=== PATIENT | female | born 1965 | race Caucasian/White ===

== ENCOUNTER 2016-07-16 08:07 | Emergency (ER) | payer OTHER ==
[2016-07-16 08:14] VITALS: RESP 18
[2016-07-16] MEDS ORDERED: predniSONE 20 MG TAB PO STA (08:24)
[2016-07-16] MEDS ORDERED: ALBUTEROL NEBULIZED 2.5 MG/3 ML INHALATION STA (08:24)
--- NOTE | 2016-07-16 08:29 | ED ---
URI HPI - General Chief Complaint: Upper Respiratory Infection Stated Complaint: RIB CAGE, BACK PAIN WITH COUGH, WHEEZING Time Seen by Provider: 07/16/16 08:19 Source: patient, RN notes reviewed Mode of arrival: ambulatory Limitations: no limitations - History of Present Illness Initial Comments: This patient is a 51-year-old woman with previous history of "wheezing," who presents with 2 days of cough and the onset today wheezing. The patient states that she developed some cold-like symptoms 2 days ago including congestion and a nonproductive cough. Since then she has noted onset of wheezing, little bit of yellow sputum, and a little bit of burning pain when she coughs. The patient states that she usually would take albuterol for this but that part of her nebulizer broke and it is not working. Patient denies fever or chills, focal chest pain, leg pain or swelling. MD Complaint: cough Onset/Timin -: days(s) Severity: moderate Quality: burning Consistency: other (With cough) Improves With: nothing Worsens With: nothing Associated Symptoms: cough, other (Wheezing) Treatments Prior to Arrival: none - Related Data Previous Rx's Medication Instructions Recorded Albuterol Inhaler [Ventolin Hfa 1 - 2 puff INHALATION Q6HR PRN #1 07/16/16 Inhaler] inhaler predniSONE 60 mg PO DAILY #30 tab 07/16/16 Allergies Allergy/AdvReac Type Severity Reaction Status Date / Time Iodinated Contrast Media - Allergy Itching Verified 07/16/16 08:28 Oral and [Iodinated Contrast Media - IV Dye] Review of Systems ROS Statement: Those systems with pertinent positive or pertinent negative responses have been documented in the HPI. ROS Other: All systems not noted in ROS Statement are negative. Constitutional: Denies: fever, chills ENT: Reports: congestion Respiratory: Reports: as per HPI, cough, wheezes. Denies: dyspnea Cardiovascular: Reports: as per HPI, chest pain. Denies: palpitations, orthopnea, edema, syncope Gastrointestinal: Denies: abdominal pain, nausea, vomiting Genitourinary: Denies: dysuria, hematuria Musculoskeletal: Denies: back pain Skin: Denies: rash Past Medical History Past Medical History: Chest Pain / Angina, Hypertension History of Any Multi-Drug Resistant Organisms: MRSA Date of last positivie culture/infection: 2006 MDRO Source:: right leg Past Surgical History: Cholecystectomy Additional Past Surgical History / Comment(s): x two Past Anesthesia/Blood Transfusion Reactions: No Reported Reaction Past Psychological History: ADD/ADHD, Anxiety, Bipolar, Depression Smoking Status: Current some day smoker Past Alcohol Use History: Abuse, Daily Past Drug Use History: Methamphetamine, Prescription Drug Abuse - Past Family History Mother Family Medical History: Diabetes Mellitus Brother(s) Family Medical History: Diabetes Mellitus, Myocardial Infarction ([place]) General Exam Limitations: no limitations General appearance: alert, in no apparent distress, obese Head exam: Present: atraumatic, normocephalic Eye exam: Present: normal appearance. Absent: scleral icterus, conjunctival injection ENT exam: Present: mucous membranes moist, other (Cobblestoning of the pharynx) Neck exam: Present: normal inspection Respiratory exam: Present: wheezes. Absent: respiratory distress, rales, rhonchi, stridor, chest wall tenderness, accessory muscle use, decreased breath sounds, prolonged expiratory Cardiovascular Exam: Present: regular rate, normal rhythm, normal heart sounds. Absent: systolic murmur, diastolic murmur, rubs, gallop GI/Abdominal exam: Present: soft. Absent: distended, tenderness, guarding, rebound Extremities exam: Present: normal inspection, normal capillary refill. Absent: pedal edema, calf tenderness Back exam: Present: normal inspection. Absent: CVA tenderness (R), CVA tenderness (L) Skin exam: Present: warm, dry, intact, normal color. Absent: rash Course Vital Signs 07/16/16 07/16/16 07/16/16 08:10 08:51 09:00 Temperature 99.7 F H Pulse Rate 71 74 76 Respiratory 18 Rate Blood Pressure 135/79 O2 Sat by Pulse 95 Oximetry Disposition Clinical Impression: Asthmatic bronchitis Disposition: HOME SELF-CARE Condition: Fair Instructions: Acute Bronchitis (ED) Prescriptions: Albuterol Inhaler [Ventolin Hfa Inhaler] 1 - 2 puff INHALATION Q6HR PRN #1 inhaler PRN Reason: Wheezing predniSONE 60 mg PO DAILY #30 tab Referrals: Miranda Kay MD [Primary Care Provider] - 1-2 days
--- NOTE | 2016-07-16 08:40 | XR ---
EXAMINATION TYPE: XR chest 2V DATE OF EXAM: 07/16/2016 8:32 AM COMPARISON: 06/22/2015 HISTORY: 51-year-old female with cough and chest pain under the ribs. TECHNIQUE: PA and lateral views FINDINGS: The cardiomediastinal silhouette, aorta, and pulmonary vasculature are within normal limits. Mild per ibronchial cuffing is noted. Strandy atelectasis at the right base. No consolidation or pleural effus ion. IMPRESSION: Peribronchial cuffing could reflect bronchitis or chronic asthma.
[2016-07-16 09:16] VITALS: BP 134/76; PULSE 79; TEMP 97.8
== END 2016-07-16 09:16 | disposition home or self-care (01) ==
LOC: SUPCPDRO 08:07 → EC 08:07
DX: J45.909 Unspecified asthma, uncomplicated (principal); F17.200 Nicotine dependence, unspecified, uncomplicated; Z91.041 Radiographic dye allergy status; Z86.14 Personal history of Methicillin resistant Staphylococcus aureus infection
CPT/HCPCS: 94640; 71020; 99283; J7512

== ENCOUNTER 2016-09-28 15:05 | Observation (INO) | payer OTHER ==
[2016-09-28] MEDS ORDERED: ASPIRIN 81 MG CHEW PO STA (18:01)
[2016-09-28] MEDS ORDERED: NITROGLYCERIN OINT 1 INCH/GM PACKET TOPICAL STA (18:01)
[2016-09-28 18:20] LABS: Basophils # (A) 0.1 k/uL (0-0.2); Basophils % (A) 1 %; CH 28.9; CHCM 33.5; Eosinophils # (A) 0.1 k/uL (0-0.7); Eosinophils % (A) 2 %; HCT 42.1 % (34.0-46.0); HDW 2.63; HGB 14.2 gm/dL (11.4-16.0); Luc # (Auto) 0.12; Luc % (Auto) 2; Lymphocytes # (A) 1.4 k/uL (1.0-4.8); Lymphocytes % (A) 22 %; MCH 29.1 pg (25.0-35.0); MCHC 33.7 g/dL (31.0-37.0); MCV 86.5 fL (80.0-100.0); Monocytes # (A) 0.3 k/uL (0-1.0); Monocytes % (A) 5 %; Neutrophils # (A) 4.5 k/uL (1.3-7.7); Neutrophils % (A) 68 %; RBC 4.86 m/uL (3.80-5.40); WBC 6.5 k/uL (3.8-10.6)
[2016-09-28 18:29] LABS: Partial Thromboplastin Time 23.3 sec (22.0-30.0)
[2016-09-28 18:38] LABS: ALT 28 U/L (9-52); AST 17 U/L (14-36); Alkaline Phosphatase 98 U/L (38-126); Anion Gap 10 mmol/L; Blood Urea Nitrogen 14 mg/dL (7-17); Calcium 9.1 mg/dL (8.4-10.2); Carbon Dioxide 29 mmol/L (22-30); Chloride 104 mmol/L (98-107); Glucose 99 mg/dL (74-99); Magnesium 2.2 mg/dL (1.6-2.3); Non-African American GFR(MDRD) >60 (>60 ml/min/1.73 sqM); Potassium 3.8 mmol/L (3.5-5.1); Sodium 143 mmol/L (137-145); Total Bilirubin 0.4 mg/dL (0.2-1.3)
--- NOTE | 2016-09-28 18:40 | XR ---
EXAMINATION TYPE: XR chest 2V DATE OF EXAM: 09/28/2016 6:37 PM COMPARISON: 07/16/2016 HISTORY: Chest pain TECHNIQUE: Frontal and lateral views of the chest are obtained. FINDINGS: Heart and mediastinum are normal. Lungs are clear. Diaphragm is normal. Bony thorax and so ft tissues appear normal. There are chest leads. IMPRESSION: Normal chest. No change.
[2016-09-28 18:45] LABS: Creatine Kinase 58 U/L (30-135)
[2016-09-28 18:58] LABS: Creatine Kinase MB 0.3 ng/mL (0.0-2.4); Troponin I <0.012 ng/mL (0.000-0.034)
--- NOTE | 2016-09-28 19:56 | ED ---
Chest Pain HPI - General Chief Complaint: Chest Pain Stated Complaint: Chest Pain Time Seen by Provider: 09/28/16 17:51 Source: patient Mode of arrival: wheelchair Limitations: no limitations - History of Present Illness Initial Comments: This 51-year-old female presents complaining of left chest heaviness. She states that it is also feeling like a jolting pain which is nonpleuritic. She states that it occurred at approximately 10:30 AM. There was some shortness of breath but no diaphoresis. She states that it does radiate down her left arm. It only lasts a few seconds to a minute. She apparently did have a similar incident 3-4 years ago and had a stress test and heart catheterization. She was told that she may need cardiac surgery but she states that she had some people from her shinto come and prefer for her. She apparently was on the operating room table when she relates that they did not find any further blockage. She denies any leg pain or swelling or history DVT or PE. No other complaints or modifying factors. - Related Data Previous Rx's Medication Instructions Recorded Albuterol Inhaler [Ventolin Hfa 1 - 2 puff INHALATION Q6HR PRN #1 07/16/16 Inhaler] inhaler Allergies Allergy/AdvReac Type Severity Reaction Status Date / Time Iodinated Contrast Media - Allergy Itching Verified 09/28/16 18:22 Oral and [Iodinated Contrast Media - IV Dye] Review of Systems ROS Statement: Those systems with pertinent positive or pertinent negative responses have been documented in the HPI. ROS Other: All systems not noted in ROS Statement are negative. Past Medical History Past Medical History: Chest Pain / Angina, Hypertension History of Any Multi-Drug Resistant Organisms: MRSA Date of last positivie culture/infection: 2006 MDRO Source:: right leg Past Surgical History: Cholecystectomy Additional Past Surgical History / Comment(s): x two Past Anesthesia/Blood Transfusion Reactions: No Reported Reaction Past Psychological History: ADD/ADHD, Anxiety, Bipolar, Depression Smoking Status: Current some day smoker Past Alcohol Use History: Abuse, Daily Past Drug Use History: Methamphetamine, Prescription Drug Abuse - Past Family History Mother Family Medical History: Diabetes Mellitus Brother(s) Family Medical History: Diabetes Mellitus, Myocardial Infarction ([place]) General Exam - General Exam Comments Initial Comments: GENERAL: The patient is well nourished and well hydrated. VITAL SIGNS: Heart rate, blood pressure, respiratory rate reviewed as recorded in nurse's notes. EYES: Pupils are round and reactive. Extraocular movements are intact. No conjunctival / lid redness or swelling. ENT: No external evidence of injury, swelling, or ecchymosis. Airway is patent. Throat is clear. NECK: Nontender. No swelling or evidence of injury. No subcutaneous emphysema. Trachea is midline. No thyroid mass. HEART: Regular rate and rhythm. Good peripheral pulses. LUNGS/CHEST: Breath sounds clear and equal bilaterally. No rales, rhonchi, or wheezes. No ecchymosis, subcutaneous emphysema, or tenderness. ABDOMEN: Abdomen soft without tenderness. No palpable masses or organomegaly. No peritoneal signs. No abdominal wall swelling or ecchymosis. EXTREMITIES: No extremity tenderness. Normal muscle tone and function. No thoracolumbar tenderness. NEUROLOGIC: Sensation is grossly intact. Cranial nerve exam reveals face is symmetrical, tongue is midline, speech is clear. SKIN: No abrasions or ecchymosis is noted. No induration or masses noted. PSYCHIATRIC: Alert and oriented. Appropriate behavior and judgment. Limitations: no limitations Course Vital Signs 09/28/16 09/28/16 09/28/16 15:10 18:28 19:38 Temperature 98.4 F Pulse Rate 71 62 57 L Respiratory 18 18 18 Rate Blood Pressure 147/92 171/105 147/89 O2 Sat by Pulse 97 99 97 Oximetry Chest Pain MDM - MDM The patient was seen and examined. All diagnostics were reviewed. The patient is placed on a telemetry monitor no ectopy is identified. The patient had an EKG which shows a normal sinus rhythm at a rate of 68. No acute ST-T wave changes are identified. The DE interval is 142, QS duration is 90, and QTC intervals 461. The patient had a chest x-ray which did not show any acute process. The cardiac profile labs are all essentially within normal limits. She received aspirin and Nitropaste and is in no distress on recheck. Is felt as though she would require admission to the hospital for further treatment. She is agreeable. Case is discussed with internal medicine and patient admitted for observation. Disposition Clinical Impression: Chest pain, Unstable angina pectoris, Hypertension Disposition: ADMITTED IP TO THIS [facility] Condition: Fair Time of Disposition: 19:56 Decision Date: 09/28/16 Decision Time: 19:56
[2016-09-28] MEDS ORDERED: HEPARIN SODIUM,PORCINE 5,000 UNIT/ML 1 ML VIAL IV PRN (19:57)
[2016-09-28] MEDS ORDERED: HEPARIN SODIUM,PORCINE 5,000 UNIT/ML 1 ML VIAL IV ONE (19:57)
[2016-09-28] MEDS ORDERED: NITROGLYCERIN SL TABS 0.4 MG TAB SUBLINGUAL PRN (19:57)
[2016-09-28] MEDS ORDERED: ALBUTEROL NEBULIZED 2.5 MG/3 ML INHALATION PRN (19:59)
[2016-09-28] MEDS ORDERED: HEPARIN SODIUM,PORCINE/D5W PMX 25,000 UNIT in DEXTROSE/WATER 1 500ML.BAG IV SCH (20:00)
[2016-09-28] MEDS: NITROGLYCERIN OINT 1 INCH/GM PACKET TOPICAL SCH (23:42)
[2016-09-29 00:48] LABS: Creatine Kinase 42 U/L (30-135)
[2016-09-29 01:02] LABS: Creatine Kinase MB <0.2 ng/mL (0.0-2.4); Troponin I <0.012 ng/mL (0.000-0.034)
[2016-09-29] MEDS: NITROGLYCERIN OINT 1 INCH/GM PACKET TOPICAL SCH ×2 (04:15→11:37)
[2016-09-29 07:46] LABS: Creatine Kinase 45 U/L (30-135)
[2016-09-29 07:52] LABS: Cholesterol 156 mg/dL (<200); HDL Cholesterol 54 mg/dL (40-60); Triglycerides 90 mg/dL (<150)
[2016-09-29 07:58] LABS: Creatine Kinase MB 0.2 ng/mL (0.0-2.4); Troponin I <0.012 ng/mL (0.000-0.034)
[2016-09-29 08:30] VITALS: RESP 18
[2016-09-29] MEDS ORDERED: ASPIRIN 325 MG TAB PO SCH (09:00)
[2016-09-29 12:03] VITALS: BP 138/80; PULSE 62; TEMP 98.6
--- NOTE | 2016-09-29 12:49 | CONS ---
DATE OF CONSULTATION: 51-year-old admitted by Dr. Dimitri Rowell. Consultation requested by Dr. Dimitri Rowell. REASON FOR CONSULTATION: Cardiac evaluation and treatment. Samia Garcia is a 51-year-old female admitted to the hospital with left-sided chest heaviness with radiation to the left arm only, lasted less than a minute, a few seconds only. The patient denies any diaphoresis or major shortness of breath. Patient is reasonably active. Lives alone. Patient had one son who . The patient used to be a smoker, and history of alcohol abuse and drug use, all stopped in 2009 and patient is not smoking at present time. No history of deep venous thrombosis. No history of pulmonary embolism. Blood work has been negative. Troponin x3 are negative. Cholesterol is decent 156, triglycerides are 70, HDL of 54, LDL of 84. Current medications include Ventolin inhaler. ALLERGIC TO IODINATED CONTRAST AGENTS. REVIEW OF SYSTEMS: Essentially unremarkable. Not on any medications at the present time. History of heart catheterization in the past, unremarkable. History of MRSA infection in the past 2006 I believe. The patient had a cholecystectomy in the past. Physical examination revealed a well-developed, well-nourished 51-year-old female not in acute distress, oriented x3 with a BMI of 37.4, pulse rate of 64, respirations 18, blood pressure 132/75. Head normocephalic. HEENT unremarkable. Neck is supple. No thyroid enlargement. No bruit noted. Good bilaterally. Chest is symmetrical. CARDIAC EXAMINATION: Regular rate and rhythm. S1 and S2. Lungs are clinically clear to auscultation and percussion. ABDOMEN: Soft, no organomegaly. Active bowel sounds. ASSESSMENT: 1. Atypical chest pains, low probability of pulmonary embolism strong family history of coronary artery disease. 2. Past history of smoking and drug abuse and alcohol abuse. RECOMMENDATIONS: Proceed with a stress echocardiogram. If the stress echocardiogram is normal, patient may go home on nitroglycerin and follow with primary care physician as necessary and follow with cardiology.
--- NOTE | 2016-09-29 13:03 | ECHOF ---
Referral Reason: MEASUREMENTS -------- HEIGHT: 167.6 cm WEIGHT: 105.2 kg BP: 107/69 IVSd: 1.2 cm (0.6 - 1.1) LVIDd: 4.5 cm (3.9 - 5.3) LVPWd: 1.1 cm (0.6 - 1.1) IVSs: 1.8 cm LVIDs: 3.2 cm LVPWs: 1.8 cm Ao Diam: 3.0 cm (2.0 - 3.7) AV Cusp: 2.4 cm (1.5 - 2.6) LA Diam: 3.4 cm (2.7 - 3.8) MV EXCURSION: 12.495 mm (> 18.000) MV EF SLOPE: 102 mm/s (70 - 150) EPSS: 0.8 cm MV E Serafin: 0.80 m/s MV DecT: 267 ms MV A Serafin: 0.55 m/s MV E/A Ratio: 1.44 RAP: 5.00 mmHg RVSP: 20.79 mmHg FINDINGS -------- Sinus rhythm. This was a technically good study. The left ventricular size is normal. There is borderline concentric left ventricular hypertrophy. Overall left ventricular systolic function is normal with, an EF between 55 - 60 %. The right ventricle is normal in size and function. The left atrium is normal in size. The right atrium is normal in size. The aortic valve is trileaflet, and appears structurally normal. No aortic stenosis or regurgitation. The mitral valve is normal. Mild mitral regurgitation is present. Mild tricuspid regurgitation present. The right ventricular systolic pressure, as measured by Doppler, is 20.79mmHg. There is no pulmonic regurgitation present. The aortic root size is normal. There is a trivial pericardial effusion present. CONCLUSIONS -------- 1. Sinus rhythm. 2. There is no pulmonic regurgitation present. 3. The aortic root size is normal. 4. There is a trivial pericardial effusion present. 5. This was a technically good study. 6. There is borderline concentric left ventricular hypertrophy. 7. Overall left ventricular systolic function is normal with, an EF between 55 - 60 %. 8. The left atrium is normal in size. 9. The aortic valve is trileaflet, and appears structurally normal. No aortic stenosis or regurgitation. 10. Mild mitral regurgitation is present. 11. Mild tricuspid regurgitation present. 12. The right ventricular systolic pressure, as measured by Doppler, is 20.79mmHg. SEC REPORTING CONSULTANT: Jacquelin Rae RDCS
--- NOTE | 2016-09-29 13:49 | ECHOS ---
DATE OF SERVICE: 09/29/2016 AGE: 51Y SEX: F HT: 66" WT: 232 lbs. Protocol Brian: X Others: Stress Echo Stage: 3 Dur. of Exercise: 8:00 *Heart Rate Blood Pressure *Rest: 67 Rest: 145/89 * *Max. Achieved: 148 Maximum BP: 196/86 85% PMHR: 142 100% PMHR: 167 *METS: 9.6 INDICATIONS: Chest pain. MEDICATIONS: - Baseline rhythm is sinus mechanism, rate of 67, normal axis and intervals, poor R-wave progression, minor nonspecific ST-T wave changes. Baseline blood pressure 145/89 mmHg. Patient exercised on Brian protocol for 8 minutes reaching peak rate of 148 beats per minute, which is equal to 88% maximum predicted heart rate; peak blood pressure 196/86 mmHg. Test was terminated due to fatigue. There was no chest pain. Electrocardiographic monitoring revealed no evidence of diagnostic ischemic ST deviation. FINDINGS: Baseline echocardiogram revealed normal wall thickening and motion. At peak exercise there was normal wall motion augmentation with no hypokinesis or dyskinesis. CONCLUSION: 1. Average exercise tolerance with normal electrocardiograph response to exercise. 2. Normal stress echocardiogram with no evidence of stress-induced ischemia.
--- NOTE | 2016-09-29 16:23 | HP ---
DATE OF ADMISSION: 09/28/2016 PRESENTING COMPLAINT: Chest pain. HISTORY OF PRESENTING COMPLAINT: This is a 51 -year-old patient of Dr. Otero with history of bipolar disorder, which is stable, not taking any medications and some hypertension in the past not taking any medications. Patient got up yesterday morning and felt a soft pressure in the left anterior clavicle area. [place] like a pressure coming on and off. No shortness of breath. No dizziness. No perspiration. Not related to activity but was concerned about cardiac and being on the left side and hence decided to come in. No prior cardiac history. REVIEW OF SYSTEMS: CONSTITUTIONAL: None. HEENT: None. RESPIRATORY: None. CARDIOVASCULAR: As above. GASTROINTESTINAL: None. GENITOURINARY: None. MUSCULOSKELETAL: As above. Dermatological: None. HEMATOLOGICAL: None. LYMPHATIC: None. PSYCHIATRY: None. NEUROLOGICAL: None. Past medical history of bipolar disorder, hypertension. PAST SURGICAL HISTORY: Cholecystectomy, cardiac cath, x2. Psych history of ADHD, anxiety, bipolar depression. SOCIAL HISTORY: The patient did occasional methamphetamines and cocaine years ago. Patient has got custody of her grandnephew 5 years old. FAMILY HISTORY: Diabetes. HOME MEDICATIONS: Albuterol p.r.n. ALLERGIES TO IV CONTRAST DYE. PHYSICAL EXAMINATION: Vital signs are temperature 98.4, pulse 91, respiration 18, blood pressure 147/92, repeat was 117/105. Pulse ox 97% on room air. GENERAL APPEARANCE: Overweight. BMI 37.5, sitting on the bed, comfortable. EYES: Pupils equal. Conjunctivae normal. HEENT: External appearance of nose and ears normal. Oral cavity normal. NECK: JVD not raised. Mass not palpable. RESPIRATORY: Effort normal. Lungs are clear. CARDIOVASCULAR: First and second sounds normal. No edema. ABDOMEN: Soft, nontender. Liver and spleen not palpable. LYMPHATIC: No lymph nodes palpable in neck or axillae. PSYCHIATRY: Alert and oriented x3. Mood and affect normal. NEUROLOGICAL: Pupils equal. Cranial nerves grossly intact. Power and sensation grossly intact. INVESTIGATIONS: White count 6.5, hemoglobin 14.2, potassium 3.3. BUN and creatinine normal. Troponin x3 negative. LDL 84. ASSESSMENT: 1. Left-sided chest pain sounds to be more musculoskeletal lasting for a minute, coming off and on. Patient admitted to rule out a cardiac cause. 2. Obesity, body mass index of 37.4. 3. Essential hypertension untreated. PLAN: Cardiology was consulted who ordered a stress test. Patient was put on aspirin, nitro paste. The patient should see a dietitian to lose weight. Copy to Dr. Otero.
--- NOTE | 2016-09-30 07:05 | DS ---
DATE OF ADMISSION: 09/28/2016 DATE OF DISCHARGE: 09/29/2016 FINAL DIAGNOSES: 1. Left anterior chest wall pain, probably musculoskeletal. 2. Obesity, body mass index of 37.4. 3. Essential hypertension. HOSPITAL COURSE: This patient presented with left-sided chest pain, felt to be musculoskeletal. Stress echocardiogram was negative. Patient has blood pressures somewhat uncontrolled. A 2-D echo showed borderline concentric left ventricular hypertrophy, ejection fraction was 55% to 60%. Care was discussed with the patient. Troponins were negative. LDL was 84. On exam, lungs are clear. CARDIOVASCULAR: First and second sounds normal. Some reproducible pain on the left anterior chest wall. CONSULTATION: Dr. Jj Germain from cardiology. DISCHARGE MEDICATIONS: 1. Ventolin 1 to 2 puffs q.6 p.r.n. 2. Zestoretic 04/15.5 one tablet p.o. b.i.d. Follow up with Dr. Otero in one week.
== END 2016-09-29 15:25 | disposition home or self-care (01) ==
LOC: EC 15:05 → 3OBS 19:57
PROVIDERS: ADMIT Hospitalist; ATTEND Hospitalist
DX: R07.89 Other chest pain (principal); I11.9 Hypertensive heart disease without heart failure; E66.9 Obesity, unspecified; Z68.37 Body mass index [BMI] 37.0-37.9, adult; F17.200 Nicotine dependence, unspecified, uncomplicated; I51.7 Cardiomegaly; R06.02 Shortness of breath; Z79.899 Other long term (current) drug therapy; Z91.041 Radiographic dye allergy status
CPT/HCPCS: 99285 ×2; 96365 ×2; 96376 ×2; 36415; 94640; 93005; 93017; 93306; 93350; 83880; 80061; 80053; 82550 ×2; 82553 ×2; 83735; 84484 ×2; 85025; 85610; 85730 ×2; 71020; G0378 ×2; J1644 ×3; 96366

== ENCOUNTER → 2017-06-01 | Outpatient (CLI) | payer OTHER ==
--- NOTE | 2017-06-03 13:37 | MM ---
Reason for exam: screening (asymptomatic). Last mammogram was performed 8 years and 2 months ago. History: Patient has history of endometrial cancer at age 37. Physical Findings: A clinical breast exam by your physician is recommended on an annual basis and results should be correlated with mammographic findings. MG 3D Screening Mammo W/Cad Bilateral CC and MLO view(s) were taken. Prior study comparison: April 03, 2009, bilateral digital screening mammogram. July 23, 2006, bilateral screening mammogram w/CAD. There are scattered fibroglandular densities. There is no discrete abnormality. ASSESSMENT: Negative, BI-RAD 1 RECOMMENDATION: Routine screening mammogram of both breasts in 1 year.
== END | disposition home or self-care (01) ==
LOC: RADMAMWWP 07:13
PROVIDERS: ATTEND Family Medicine
DX: Z12.31 Encounter for screening mammogram for malignant neoplasm of breast (principal)
CPT/HCPCS: 77063; G0202

== ENCOUNTER → 2018-04-07 | Outpatient (CLI) | payer OTHER ==
--- NOTE | 2018-04-07 15:52 | XR ---
EXAMINATION TYPE: XR chest 2V DATE OF EXAM: 04/07/2018 COMPARISON: 04/16/2017 INDICATION: Chronic cough TECHNIQUE: Frontal and lateral views of the chest are obtained. FINDINGS: The heart size is normal. The pulmonary vasculature is normal. The lungs are clear. IMPRESSION: 1. No acute pulmonary process.
== END ==
LOC: RADXRMAIN 14:11
PROVIDERS: ATTEND Nurse Practitioner Family
DX: R05 Cough (principal)
CPT/HCPCS: 71046

== ENCOUNTER → 2018-04-27 | Outpatient (CLI) | payer OTHER ==
--- NOTE | 2018-04-27 08:34 | CT ---
EXAMINATION TYPE: CT chest wo con DATE OF EXAM: 04/27/2018 COMPARISON: NONE HISTORY: Hemoptysis, cough, chest pain CT DLP: 495.8 mGycm. Automated Exposure Control for Dose Reduction was Utilized. TECHNIQUE: CT scan of the thorax is performed without IV contrast. FINDINGS: LUNGS: The lungs are grossly clear, there is no concerning parenchymal mass or nodule identified. V adarsh mild subsegmental dependent atelectasis is seen on coronal images of the posterior lung bases. No peribronchial cuffing. No endobronchial lesion is seen. There is no pleural effusion or pneumothorax seen. The tracheobronchial tree is patent. MEDIASTINUM: Lack of IV contrast is noted to limit evaluation for mediastinal and especially hilar ad enopathy. There are no definitive greater than 1 cm hilar or mediastinal lymph nodes. Heart is upper limits of normal in size. Trace pericardial fluid is seen.. OTHER: Hepatic parenchyma is diffusely hypoattenuated in comparison to that of the spleen, most commo nly seen in hepatic steatosis. This finding limits evaluation for hepatic masses. No gross evidence o f hepatic mass is seen. No intrahepatic biliary ductal dilatation. Gallbladder surgically absent. Flu id attenuated probable 3 cm left renal cyst is incidentally noted with low-density probable right august al cyst but is ill-defined given lack of intravenous contrast. Minimal multilevel degenerative change s of the spine are noted. IMPRESSION: 1. No focal consolidation, pleural effusion or pneumothorax. No pulmonary mass or endobronchial obstr uction. No peribronchial cuffing. No CT findings to correspond to the patient's hemoptysis. 2. Hepatic steatosis and probable bilateral renal cysts.
== END | disposition home or self-care (01) ==
LOC: RADCTMAIN 07:24
PROVIDERS: ATTEND Family Medicine
DX: R04.2 Hemoptysis (principal)
CPT/HCPCS: 71250

== ENCOUNTER 2019-03-05 13:23 | Emergency (ER) | payer OTHER ==
[2019-03-05 13:36] VITALS: RESP 18
[2019-03-05] MEDS ORDERED: diphenhydrAMINE 50 MG/ML 1 ML VIAL IVP STA (14:08)
[2019-03-05] MEDS ORDERED: METOCLOPRAMIDE 5 MG/ML 2 ML VIAL IVP STA (14:08)
[2019-03-05] MEDS ORDERED: DEXAMETHASONE SOD PHOSPHATE 10 MG/ML 1 ML VIAL IV STA (14:09)
[2019-03-05] MEDS ORDERED: MAGNESIUM SULFATE-D5W PMX 1 GM in DEXTROSE/WATER 1 100ML.BAG IVPB ONE (14:09)
[2019-03-05 14:41] LABS: Basophils # (A) 0.1 k/uL (0-0.2); Basophils % (A) 1 %; Eosinophils # (A) 0.2 k/uL (0-0.7); Eosinophils % (A) 3 %; HCT 39.1 % (34.0-46.0); HGB 13.2 gm/dL (11.4-16.0); Lymphocytes # (A) 1.1 k/uL (1.0-4.8); Lymphocytes % (A) 17 %; MCH 29.6 pg (25.0-35.0); MCHC 33.7 g/dL (31.0-37.0); MCV 87.9 fL (80.0-100.0); Mean Platelet Volume 6.5; Monocytes # (A) 0.3 k/uL (0-1.0); Monocytes % (A) 5 %; Neutrophils # (A) 4.4 k/uL (1.3-7.7); Neutrophils % (A) 72 %; Platelet Count 301 k/uL (150-450); RBC 4.44 m/uL (3.80-5.40); RDW 15.4 % (11.5-15.5); WBC 6.1 k/uL (3.8-10.6)
[2019-03-05 14:48] LABS: ALT 27 U/L (9-52); AST 21 U/L (14-36); African American GFR (CKD) >90 (>60 ml/min/1.73 sqM); Albumin 3.7 g/dL (3.5-5.0); Alkaline Phosphatase 98 U/L (38-126); Anion Gap 7 mmol/L; Blood Urea Nitrogen 16 mg/dL (7-17); Calcium 8.9 mg/dL (8.4-10.2); Carbon Dioxide 29 mmol/L (22-30); Chloride 105 mmol/L (98-107); Glucose 114 mg/dL (74-99); Potassium 4.1 mmol/L (3.5-5.1); Sodium 141 mmol/L (137-145); Total Bilirubin 0.3 mg/dL (0.2-1.3); Total Protein 6.9 g/dL (6.3-8.2)
--- NOTE | 2019-03-05 15:01 | CT ---
EXAMINATION TYPE: CT brain wo con DATE OF EXAM: 03/05/2019 COMPARISON: None HISTORY: 54-year-old female headache, nausea, vomiting. TECHNIQUE: Examination was done in axial plane without intravenous contrast. Coronal and sagittal r econstructions performed. CT DLP: 1111.4 mGycm Automated exposure control for dose reduction was used. FINDINGS: There is no evidence of acute intracranial hemorrhage, acute ischemic changes, mass, mass-effect, or extra-axial fluid collection. There is no effacement of cerebral sulci or basal subarachnoid cister ns. There is no hydrocephalus. There is no midline shift. Freeman-white matter distinction is preserv ed. Paranasal sinuses and mastoid air cells are well pneumatized. Orbits and globes are intact. IMPRESSION: No acute intracranial abnormality seen.
--- NOTE | 2019-03-05 15:51 | ED ---
Headache HPI - General Chief Complaint: Headache Stated Complaint: Migraine Mode of arrival: ambulatory Limitations: no limitations - History of Present Illness Initial Comments: The patient is a 54-year-old female presents emergency room with reported migraine 3 weeks. Patient states that she has had a large history of depression and anxiety. States that her mood has been unstable for the past month and does believe it is inducing a migraine. Does report a history of headaches. She denies any vision changes or photophobia. No neck pain or stiffness. No fevers or chills. She denies any sick contacts. No recent head trauma. Denies any nausea, vomiting. Denies any signs of an upper respiratory infection to include ear pain or nasal drainage. No sore throat. The patient has been taking Aleve and Excedrin at home however it has not helped her symptoms. She did follow up with her primary care physician who adjusted her dose of Prozac. He was going to obtain an MRI on of her brain. The patient states that she could not take the persistent pain any longer and came into the emergency department for evaluation. She denies any sudden onset or maximal intensity. She denies any unilateral numbness or weakness. No slurred speech or facial droop. Denies any chest pain or shortness of breath. No abdominal pain or changes in her bowel or bladder habits. There are no other alleviating, precipitating or modifying factors - Related Data Home Medications Medication Instructions Recorded Confirmed Albuterol Inhaler [Ventolin Hfa 2 puff INHALATION RT-Q6H PRN 04/16/17 03/05/19 Inhaler] FLUoxetine HCL [PROzac] 40 mg PO DAILY 03/05/19 03/05/19 Allergies Allergy/AdvReac Type Severity Reaction Status Date / Time Iodinated Contrast- Oral and Allergy Rash/Hives Verified 03/05/19 13:55 IV Dye [Iodinated Contrast Media - IV Dye] Review of Systems ROS Statement: Those systems with pertinent positive or pertinent negative responses have been documented in the HPI. ROS Other: All systems not noted in ROS Statement are negative. Past Medical History Past Medical History: Chest Pain / Angina, Hypertension History of Any Multi-Drug Resistant Organisms: MRSA Date of last positivie culture/infection: 2006 MDRO Source:: right leg Past Surgical History: Cholecystectomy, Heart Catheterization Additional Past Surgical History / Comment(s): x two Past Anesthesia/Blood Transfusion Reactions: No Reported Reaction Past Psychological History: ADD/ADHD, Anxiety, Bipolar, Depression Smoking Status: Never smoker Past Alcohol Use History: Abuse, Daily Past Drug Use History: Methamphetamine, Prescription Drug Abuse - Past Family History Mother Family Medical History: Diabetes Mellitus Brother(s) Family Medical History: Diabetes Mellitus, Myocardial Infarction ([place]) Sister(s) Family Medical History: Diabetes Mellitus General Exam Limitations: no limitations Course Vital Signs 03/05/19 03/05/19 13:32 16:04 Temperature 98.1 F 98.3 F Pulse Rate 81 61 Respiratory 18 18 Rate Blood Pressure 136/89 128/78 O2 Sat by Pulse 97 96 Oximetry Medical Decision Making - Medical Decision Making Upon arrival the patient is placed into room 10. She is hooked up to continuous pulse ox and cardiac monitoring. Peripheral IV is established. The patient was given 1 g of magnesium, 10 mg of Decadron, 10 mg of Reglan and 25 mg of Benadryl. Laboratory studies were conducted and the patient went for CT of her brain. Upon return results the patient's labwork is unremarkable. CT of the brain demonstrates no acute bleed or mass. I did discuss these results with the patient. She is reevaluated and has had complete resolution of her headache. At this time she'll be discharged home. She needs to follow up with her primary care physician the MRI performed on . The patient has any new or worsening symptoms she should return to the emergency room. The patient was then discharged home in stable condition - Lab Data Result diagrams: 03/05/19 14:22 03/05/19 14:22 Lab Results 03/05/19 03/05/19 Range/Units 14:22 14:22 WBC 6.1 (3.8-10.6) k/uL RBC 4.44 (3.80-5.40) m/uL Hgb 13.2 (11.4-16.0) gm/dL Hct 39.1 (34.0-46.0) % MCV 87.9 (80.0-100.0) fL MCH 29.6 (25.0-35.0) pg MCHC 33.7 (31.0-37.0) g/dL RDW 15.4 (11.5-15.5) % Plt Count 301 (150-450) k/uL Neutrophils % 72 % Lymphocytes % 17 % Monocytes % 5 % Eosinophils % 3 % Basophils % 1 % Neutrophils # 4.4 (1.3-7.7) k/uL Lymphocytes # 1.1 (1.0-4.8) k/uL Monocytes # 0.3 (0-1.0) k/uL Eosinophils # 0.2 (0-0.7) k/uL Basophils # 0.1 (0-0.2) k/uL Sodium 141 (137-145) mmol/L Potassium 4.1 (3.5-5.1) mmol/L Chloride 105 (98-107) mmol/L Carbon Dioxide 29 (22-30) mmol/L Anion Gap 7 mmol/L BUN 16 (7-17) mg/dL Creatinine 0.79 (0.52-1.04) mg/dL Est GFR (CKD-EPI)AfAm >90 (>60 ml/min/1.73 sqM) Est GFR (CKD-EPI)NonAf 85 (>60 ml/min/1.73 sqM) Glucose 114 H (74-99) mg/dL Calcium 8.9 (8.4-10.2) mg/dL Total Bilirubin 0.3 (0.2-1.3) mg/dL AST 21 (14-36) U/L ALT 27 (9-52) U/L Alkaline Phosphatase 98 (38-126) U/L Total Protein 6.9 (6.3-8.2) g/dL Albumin 3.7 (3.5-5.0) g/dL TSH 1.010 (0.465-4.680) mIU/L Disposition Clinical Impression: Migraine Disposition: HOME SELF-CARE Condition: Stable Instructions (If sedation given, give patient instructions): Acute Headache (ED) Is patient prescribed a controlled substance at d/c from ED?: No Referrals: Guilherme Sharif Jr, [Primary Care Provider] - 1-2 days Time of Disposition: 15:51
[2019-03-05 16:06] VITALS: BP 128/78; PULSE 61; TEMP 98.3
== END 2019-03-05 16:05 | disposition home or self-care (01) ==
LOC: EC 13:23
DX: G43.909 Migraine, unspecified, not intractable, without status migrainosus (principal); F19.10 Other psychoactive substance abuse, uncomplicated; F41.9 Anxiety disorder, unspecified; F31.9 Bipolar disorder, unspecified; F90.9 Attention-deficit hyperactivity disorder, unspecified type; Z86.14 Personal history of Methicillin resistant Staphylococcus aureus infection; Z91.041 Radiographic dye allergy status
CPT/HCPCS: 36415; 80053; 84443; 85025; 70450; 99283; 96365; 96375 ×3; J1200; J1100; J2765; J3475; 96374

== ENCOUNTER → 2019-07-10 | Outpatient (CLI) | payer OTHER ==
--- NOTE | 2019-07-10 14:14 | XR ---
EXAMINATION TYPE: XR thoracic spine 2V DATE OF EXAM: 07/10/2019 CLINICAL HISTORY: Chronic back pain TECHNIQUE: Frontal, lateral, and swimmer's view of thoracic spine are obtained. COMPARISON: None. FINDINGS: Subtle dextroscoliosis of the lower thoracic spine and levoscoliosis of the upper lumbar sp ine. Mild multilevel degenerative disc disease of the thoracic spine demonstrated as small anterior o steophytes and intervertebral disc space narrowing. Thoracic spine show satisfactory alignment withou t evidence of acute fracture or dislocation. Vertebral body heights are preserved. Cholecystectomy clips are noted. IMPRESSION: No acute fracture or malalignment is seen in the thoracic spine. Mild scoliosis and mild multilevel degenerative disc disease.
--- NOTE | 2019-07-10 14:17 | XR ---
EXAMINATION TYPE: XR cervical spine limited DATE OF EXAM: 07/10/2019 TECHNIQUE: Frontal, lateral and open mouth view of the cervical spine are obtained. HISTORY: M54.2 neck pain COMPARISON: None FINDINGS: The cervical spine is visualized from C1 thru the top of C7 level, it is satisfactory in a lignment without evidence of acute fracture or dislocation. There is straightening of usual cervical lordosis. Intervertebral disc space narrowing is seen at C5-C6 with small anterior osteophytes. The p re-vertebral soft tissue appears within normal limits. The C1-C2 articulation is within normal limit s on the open mouth view. IMPRESSION: No acute fracture or malalignment is seen in the cervical spine. Mild degenerative disc disease at C5-C6. Straightening of usual cervical lordosis that may relate to muscular strain/spasm o r patient positioning.
== END | disposition home or self-care (01) ==
LOC: RADXRMAIN 13:11
PROVIDERS: ATTEND Family Medicine
DX: M50.322 Other cervical disc degeneration at C5-C6 level (principal); M51.34 Other intervertebral disc degeneration, thoracic region; M41.84 Other forms of scoliosis, thoracic region
CPT/HCPCS: 72040; 72070

== ENCOUNTER 2019-07-11 17:03 | Observation (INO) | payer OTHER ==
[2019-07-11] MEDS ORDERED: ASPIRIN 81 MG PO STA (17:24)
[2019-07-11] MEDS ORDERED: NITROGLYCERIN OINT 1 INCH/GM PACKET TOPICAL STA (17:24)
[2019-07-11] MEDS ORDERED: NITROGLYCERIN SL TABS 0.4 MG TAB SUBLINGUAL STA (17:24)
[2019-07-11 17:43] LABS: Basophils # (A) 0.1 k/uL (0-0.2); Basophils % (A) 1 %; Eosinophils # (A) 0.2 k/uL (0-0.7); Eosinophils % (A) 4 %; HCT 39.7 % (34.0-46.0); Lymphocytes # (A) 1.7 k/uL (1.0-4.8); Lymphocytes % (A) 27 %; MCH 28.8 pg (25.0-35.0); MCHC 32.8 g/dL (31.0-37.0); MCV 87.9 fL (80.0-100.0); Mean Platelet Volume 7.1; Monocytes # (A) 0.4 k/uL (0-1.0); Monocytes % (A) 7 %; Neutrophils # (A) 3.8 k/uL (1.3-7.7); Neutrophils % (A) 60 %; Platelet Count 289 k/uL (150-450); RBC 4.51 m/uL (3.80-5.40); RDW 12.9 % (11.5-15.5); WBC 6.3 k/uL (3.8-10.6)
[2019-07-11 17:51] LABS: Calcium 9.3 mg/dL (8.4-10.2); Magnesium 2.1 mg/dL (1.6-2.3); Potassium 4.3 mmol/L (3.5-5.1); Total Bilirubin 0.3 mg/dL (0.2-1.3); Total Protein 7.2 g/dL (6.3-8.2)
[2019-07-11 17:55] LABS: INR 0.9 (<1.2); Partial Thromboplastin Time 25.4 sec (22.0-30.0)
--- NOTE | 2019-07-11 17:56 | ED ---
General Adult HPI - General Chief complaint: Chest Pain Stated complaint: chest pain Time Seen by Provider: 07/11/19 17:10 Source: patient, RN notes reviewed, old records reviewed Mode of arrival: wheelchair Limitations: no limitations - History of Present Illness Initial comments: This is a 54-year-old female presents emergency Department complaining of chest pain for last 2 hours. Patient states she has a strong family history of heart disease. Patient denies any smoking patient denies diabetes patient denies high blood pressure high cholesterol. Patient states 2 hours prior to arrival she started having chest pain that went up into her neck on the left side and in her shoulder. Patient states she was mildly short of breath she did not have any diaphoretic episodes or any nausea. Patient states the pain is still there. Patient states she had a catheterization about 10 years ago and it was normal. Patient denies any lightheadedness or dizziness. Patient denies any palpitations. Patient denies any abdominal pain patient denies nausea vomiting diarrhea. - Related Data Home Medications Medication Instructions Recorded Confirmed Ascorbic Acid [Vitamin C] 1,000 mg PO DAILY 07/11/19 07/11/19 Cyanocobalamin (Vitamin B-12) 1,000 mcg PO DAILY 07/11/19 07/11/19 [Vitamin B-12] Escitalopram [Lexapro] 10 mg PO DAILY 07/11/19 07/11/19 Allergies Allergy/AdvReac Type Severity Reaction Status Date / Time Iodinated Contrast Media Allergy Rash/Hives Verified 07/11/19 18:32 [Iodinated Contrast Media - IV Dye] Review of Systems ROS Statement: Those systems with pertinent positive or pertinent negative responses have been documented in the HPI. ROS Other: All systems not noted in ROS Statement are negative. Past Medical History Past Medical History: Chest Pain / Angina, Hypertension History of Any Multi-Drug Resistant Organisms: MRSA Date of last positivie culture/infection: 2006 MDRO Source:: right leg Past Surgical History: Cholecystectomy, Heart Catheterization Additional Past Surgical History / Comment(s): x two Past Anesthesia/Blood Transfusion Reactions: No Reported Reaction Past Psychological History: ADD/ADHD, Anxiety, Bipolar, Depression Smoking Status: Never smoker Past Alcohol Use History: None Reported Past Drug Use History: None Reported - Past Family History Mother Family Medical History: Diabetes Mellitus Brother(s) Family Medical History: Diabetes Mellitus, Myocardial Infarction ([place]) Sister(s) Family Medical History: Diabetes Mellitus General Exam - General Exam Comments Initial Comments: GENERAL: Patient is well-developed and well-nourished. Patient is nontoxic and well- hydrated and is in mild distress. ENT: Neck is soft and supple. No significant lymphadenopathy is noted. Oropharynx is clear. Moist mucous membranes. Neck has full range of motion without eliciting any pain. EYES: The sclera were anicteric and conjunctiva were pink and moist. Extraocular movements were intact and pupils were equal round and reactive to light. Eyelids were unremarkable. PULMONARY: Unlabored respirations. Good breath sounds bilaterally. No audible rales rhonchi or wheezing was noted. CARDIOVASCULAR: There is a regular rate and rhythm without any murmurs gallops or rubs. ABDOMEN: Soft and nontender with normal bowel sounds. SKIN: Skin is clear with no lesions or rashes and otherwise unremarkable. NEUROLOGIC: Patient is alert and oriented x3. Cranial nerves II through XII are grossly intact. Motor and sensory are also intact. Normal speech, volume and content. Symmetrical smile. MUSCULOSKELETAL: Normal extremities with adequate strength and full range of motion. LYMPHATICS: No significant lymphadenopathy is noted PSYCHIATRIC: Normal psychiatric evaluation. Limitations: no limitations Course Vital Signs 07/11/19 07/11/19 17:07 17:40 Temperature 98.2 F Pulse Rate 64 75 Respiratory 20 18 Rate Blood Pressure 161/95 154/97 O2 Sat by Pulse 96 96 Oximetry Medical Decision Making - Medical Decision Making EKG was initially done in triage it showed a normal sinus rhythm at 67 bpm WA interval 246 QRS is 96 Q-T intervals 44 QTC is 426. Patient had very minimal ST segment elevation in 1 and aVL with some T-wave inversions in 2 and aVF there is poor quality EKG on V4 and V6. I repeated EKG shows a patient The room that EKG showed normal sinus rhythm at 70 bpm WA interval is 146 dresses 90 QT interval 422 QTC is 462 patient did have T-wave inversions in lead 3 which was seen on old EKG as well. Patient had no ST segment elevation or depression Patient was given a sublingual nitroglycerin and it took away some of the pain but then it returned and at that point I repeated EKG showed normal sinus rhythm at 64 bpm WA interval is on a 44 QRS is under 2 QT interval is 464 QTC is 478. Patient's EKG shows no ST segment elevation or depression however there is T- wave inversion in lead 3 which is seen on previous EKGs done today as well as a previous EKG that was not done today. I spoke with Dr. Chino he agreed to admit the patient admitted the patient I wrote admitting orders. I started the patient on heparin. I continued heparin and aspirin nitro patient floor. I consult cardiology. - Lab Data Result diagrams: 07/11/19 17:25 07/11/19 17:25 Lab Results 07/11/19 07/11/19 07/11/19 Range/Units 17:25 17:25 17:25 WBC 6.3 (3.8-10.6) k/uL RBC 4.51 (3.80-5.40) m/uL Hgb 13.0 (11.4-16.0) gm/dL Hct 39.7 (34.0-46.0) % MCV 87.9 (80.0-100.0) fL MCH 28.8 (25.0-35.0) pg MCHC 32.8 (31.0-37.0) g/dL RDW 12.9 (11.5-15.5) % Plt Count 289 (150-450) k/uL Neutrophils % 60 % Lymphocytes % 27 % Monocytes % 7 % Eosinophils % 4 % Basophils % 1 % Neutrophils # 3.8 (1.3-7.7) k/uL Lymphocytes # 1.7 (1.0-4.8) k/uL Monocytes # 0.4 (0-1.0) k/uL Eosinophils # 0.2 (0-0.7) k/uL Basophils # 0.1 (0-0.2) k/uL PT 10.0 (9.0-12.0) sec INR 0.9 (<1.2) APTT 25.4 (22.0-30.0) sec Sodium 141 (137-145) mmol/L Potassium 4.3 (3.5-5.1) mmol/L Chloride 106 (98-107) mmol/L Carbon Dioxide 29 (22-30) mmol/L Anion Gap 6 mmol/L BUN 16 (7-17) mg/dL Creatinine 0.86 (0.52-1.04) mg/dL Est GFR (CKD-EPI)AfAm 88 (>60 ml/min/1.73 sqM) Est GFR (CKD-EPI)NonAf 76 (>60 ml/min/1.73 sqM) Glucose 116 H (74-99) mg/dL Calcium 9.3 (8.4-10.2) mg/dL Magnesium 2.1 (1.6-2.3) mg/dL Total Bilirubin 0.3 (0.2-1.3) mg/dL AST 19 (14-36) U/L ALT 16 (4-34) U/L Alkaline Phosphatase 94 (38-126) U/L Troponin I (0.000-0.034) ng/mL Total Protein 7.2 (6.3-8.2) g/dL Albumin 4.0 (3.5-5.0) g/dL 07/11/19 Range/Units 17:25 WBC (3.8-10.6) k/uL RBC (3.80-5.40) m/uL Hgb (11.4-16.0) gm/dL Hct (34.0-46.0) % MCV (80.0-100.0) fL MCH (25.0-35.0) pg MCHC (31.0-37.0) g/dL RDW (11.5-15.5) % Plt Count (150-450) k/uL Neutrophils % % Lymphocytes % % Monocytes % % Eosinophils % % Basophils % % Neutrophils # (1.3-7.7) k/uL Lymphocytes # (1.0-4.8) k/uL Monocytes # (0-1.0) k/uL Eosinophils # (0-0.7) k/uL Basophils # (0-0.2) k/uL PT (9.0-12.0) sec INR (<1.2) APTT (22.0-30.0) sec Sodium (137-145) mmol/L Potassium (3.5-5.1) mmol/L Chloride (98-107) mmol/L Carbon Dioxide (22-30) mmol/L Anion Gap mmol/L BUN (7-17) mg/dL Creatinine (0.52-1.04) mg/dL Est GFR (CKD-EPI)AfAm (>60 ml/min/1.73 sqM) Est GFR (CKD-EPI)NonAf (>60 ml/min/1.73 sqM) Glucose (74-99) mg/dL Calcium (8.4-10.2) mg/dL Magnesium (1.6-2.3) mg/dL Total Bilirubin (0.2-1.3) mg/dL AST (14-36) U/L ALT (4-34) U/L Alkaline Phosphatase (38-126) U/L Troponin I <0.012 (0.000-0.034) ng/mL Total Protein (6.3-8.2) g/dL Albumin (3.5-5.0) g/dL Critical Care Time Critical Care Time: Yes Total Critical Care Time: 35 Disposition Clinical Impression: Unstable angina pectoris Disposition: ADMITTED IP TO THIS [facility] Referrals: Guilherme Sharif Jr, [Primary Care Provider] - 1-2 days Time of Disposition: 19:14
[2019-07-11] MEDS ORDERED: HEPARIN SODIUM,PORCINE 5,000 UNIT/ML 1 ML VIAL IV ONE (18:15)
[2019-07-11] MEDS ORDERED: HEPARIN SOD,PORK IN 0.45% NACL 25,000 UNIT in 0.45% NACL 1 250ML.BAG IV SCH (18:15)
[2019-07-11] MEDS ORDERED: NITROGLYCERIN SL TABS 0.4 MG TAB SUBLINGUAL PRN (19:15)
--- NOTE | 2019-07-11 19:43 | XR ---
EXAMINATION TYPE: XR chest 2V DATE OF EXAM: 07/11/2019 COMPARISON: 04/07/2018 HISTORY: Pain TECHNIQUE: FINDINGS: Heart and mediastinum are within normal limits. Lungs are clear of infiltrate. There is no pleural effusion. There are no hilar masses. There are chest leads. Bony thorax is intact. IMPRESSION: No active cardiopulmonary disease. Normal heart. No change.
[2019-07-12] MEDS: NITROGLYCERIN OINT 1 INCH/GM PACKET TOPICAL SCH ×4 (02:44→17:04)
[2019-07-12] MEDS ORDERED: HEPARIN SODIUM,PORCINE 5,000 UNIT/ML 1 ML VIAL IV STA (02:49)
[2019-07-12 06:54] LABS: Cholesterol 167 mg/dL (<200); HDL Cholesterol 52 mg/dL (40-60); LDL Cholesterol,Calculated 100 mg/dL (0-99); Triglycerides 77 mg/dL (<150)
[2019-07-12] MEDS ORDERED: ASPIRIN 325 MG TAB PO SCH (09:00)
[2019-07-12] MEDS ORDERED: INFLUENZA VACCINE (6 MOS+) 60 MCG/0.5 ML SYRINGE IM ONE (09:28)
[2019-07-12] MEDS ORDERED: SODIUM CHLORIDE 0.9% 1,000 ML in EMPTY BAG 1 BAG IV ONE (10:50)
[2019-07-12] MEDS ORDERED: ATORVASTATIN 80 MG TAB PO STA (10:50)
[2019-07-12] MEDS ORDERED: ALPRAZolam 0.5 MG TAB PO PRN (10:50)
[2019-07-12] MEDS ORDERED: ALPRAZolam 0.25 MG TAB PO PRN (10:50)
--- NOTE | 2019-07-12 11:02 | P.CRDCN ---
History of Present Illness History of present illness: HISTORY OF PRESENTING ILLNESS This is a pleasant 54-year-old female past medical history significant for asthma and gastroesophageal reflux disease. She follows in the office with Dr. Segura. We have been asked to see in consultation for chest pain. She states yesterday while sitting down doing nothing in particular she felt an acute onset of a heavy pressure sensation in the left precordial region with radiation to the left shoulder and down the left arm. Her left arm is extremely heavy and she felt she couldn't lift it up. She lay down and attempted to take a nap see if this would improve her symptoms. When she lay down initially her symptoms subsided however they did return about 15 minutes later waking her from sleep. In total her symptoms lasted for approximately 2 hours. Upon arrival to the emergency department she was having ongoing discomfort and also developed some shortness of breath. Nitroglycerin was given and this did subside her pain. She denies associated palpitations, dizziness, nausea, vomiting or diaphoresis. DIAGNOSTICS Initial EKG reveals sinus mechanism heart rate is 67, T-wave inversions in the inferior leads as well as ST changes noted the septal anterior leads. Repeat EKG continues to show T-wave abnormalities in inferior leads however the precordial leads appear normal. T-wave inversions appear new compared to old EKGs. Chest xray negative for an acute cardiopulmonary process. Laboratory reviewed, CBC unremarkable, sodium 141, potassium 4.3, creatinine 0.86, magnesium 2.1, cardiac enzymes negative 3, LDL 100 and HDL 52. She takes no daily cardiac medications. Most recent dobutamine stress echocardiogram obtained 2018 was negative for ischemia. Most recent echocardiogram obtained in 2017 reveals preserved LV systolic function with ejection fraction 55-60%, mild MR and mild TR noted. REVIEW OF SYSTEMS At the time of my exam: CONSTITUTIONAL: Denies fever or chills. CARDIOVASCULAR: Denies chest pain, shortness of breath, orthopnea, PND or palpitations. RESPIRATORY: Denies cough. GASTROINTESTINAL: Denies abdominal pain, diarrhea, constipation, nausea or vomiting. MUSCULOSKELETAL: Denies myalgias. NEUROLOGIC: Denies numbness, tingling or weakness. ENDOCRINE: Denies fatigue, weight change, polydipsia or polyurina. GENITOURINARY: Denies burning, hematuria or urgency with micturation. HEMATOLOGIC: Denies history of anemia or bleeding. PHYSICAL EXAMINATION Blood pressure 166/90 heart rate 62 afebrile and maintaining oxygen saturation on nasal cannula. CONSTITUTIONAL: No apparent distress. HEENT: Head is normocephalic. Pupils are equal, round. Sclerae anicteric. Mucous membranes of the mouth are moist. No JVD. No carotid bruit. CHEST EXAMINATION: Lungs are clear to auscultation. No chest wall tenderness is noted on palpation or with deep breathing. HEART EXAMINATION: Regular rate and rhythm. S1, S2 heard. No murmurs, gallops or rub. ABDOMEN: Soft, nontender. Positive bowel sounds. EXTREMITIES: 2+ peripheral pulses, no lower extremity edema and no calf tenderness. NEUROLOGIC EXAMINATION: Patient is awake, alert and oriented x3. ASSESSMENT Unstable angina with EKG changes Hypertension History of illicit drug use in the past Strong family history of premature coronary artery disease PLAN Recommend proceeding with cardiac cathterization to assess for underlying coronary artery disease. I have discussed the risks, benefits and alternative therapies for the above- mentioned procedure and for both sedation/analgesia as well as necessary blood product administration, if indicated, as they pertain to this patient. The patient has indicated understanding and acceptance of the risks and procedures discussed. Questions have been answered appropriately and she is agreeable to move forward with the above stated procedure. Initiate on lisinopril 5 mg daily. Obtain 2-D echocardiogram and Doppler study to assess cardiac structure and function. Further recommendations to follow based upon clinical course. Thank you kindly for this consultation. Nurse Practitioner note has been reviewed, I agree with a documented findings and plan of care. Patient was seen and examined. Past Medical History Past Medical History: Chest Pain / Angina, Hypertension History of Any Multi-Drug Resistant Organisms: MRSA Date of last positivie culture/infection: 2006 MDRO Source:: right leg Past Surgical History: Cholecystectomy, Heart Catheterization Additional Past Surgical History / Comment(s): x two Past Anesthesia/Blood Transfusion Reactions: No Reported Reaction Past Psychological History: ADD/ADHD, Anxiety, Bipolar, Depression Smoking Status: Never smoker Past Alcohol Use History: None Reported Past Drug Use History: None Reported - Past Family History Mother Family Medical History: Diabetes Mellitus Brother(s) Family Medical History: Diabetes Mellitus, Myocardial Infarction ([place]) Sister(s) Family Medical History: Diabetes Mellitus Father Family Medical History: Diabetes Mellitus Medications and Allergies Home Medications Medication Instructions Recorded Confirmed Type Ascorbic Acid [Vitamin C] 1,000 mg PO DAILY 07/11/19 07/11/19 History Cyanocobalamin (Vitamin B-12) 1,000 mcg PO DAILY 07/11/19 07/11/19 History [Vitamin B-12] Escitalopram [Lexapro] 10 mg PO DAILY 07/11/19 07/11/19 History Allergies Allergy/AdvReac Type Severity Reaction Status Date / Time Iodinated Contrast Media Allergy Rash/Hives Verified 07/11/19 18:32 [Iodinated Contrast Media - IV Dye] Physical Exam Vitals: Vital Signs Temp Pulse Resp BP Pulse Ox 07/12/19 06:07 59 L 16 146/93 95 07/12/19 02:00 65 14 136/94 95 07/12/19 00:00 64 16 116/69 95 07/11/19 22:00 60 63 H 132/83 94 L 07/11/19 20:00 66 18 139/93 95 07/11/19 17:40 75 18 154/97 96 07/11/19 17:07 98.2 F 64 20 161/95 96 Intake and Output 07/11/19 07/12/19 07/12/19 22:59 06:59 14:59 Intake Total 75.667 Balance 75.667 Intake: Intake, IV Titration 75.667 Amount Heparin Sod,Pork in 0.45% 75.667 NaCl 25,000 unit In 0.45 % NaCl 1 250ml.bag @ 9. 186 UNITS/KG/HR 10 mls/hr IV .Q24H [facility] Rx#: [id number] Other: Weight 108.862 kg Results 07/11/19 17:25 07/11/19 17:25 Cardiac Enzymes 07/11/19 07/11/19 07/11/19 Range/Units 17:25 17:25 23:01 AST 19 (14-36) U/L Troponin I <0.012 <0.012 (0.000-0.034) ng/mL 07/12/19 Range/Units 05:32 AST (14-36) U/L Troponin I <0.012 (0.000-0.034) ng/mL Coagulation 07/11/19 07/12/19 07/12/19 Range/Units 17:25 01:17 05:32 PT 10.0 (9.0-12.0) sec APTT 25.4 44.8 H 73.9 H (22.0-30.0) sec Lipids 07/12/19 Range/Units 05:32 Triglycerides 77 (<150) mg/dL Cholesterol 167 (<200) mg/dL HDL Cholesterol 52 (40-60) mg/dL CBC 07/11/19 Range/Units 17:25 WBC 6.3 (3.8-10.6) k/uL RBC 4.51 (3.80-5.40) m/uL Hgb 13.0 (11.4-16.0) gm/dL Hct 39.7 (34.0-46.0) % Plt Count 289 (150-450) k/uL Comprehensive Metabolic Panel 07/11/19 Range/Units 17:25 Sodium 141 (137-145) mmol/L Potassium 4.3 (3.5-5.1) mmol/L Chloride 106 (98-107) mmol/L Carbon Dioxide 29 (22-30) mmol/L BUN 16 (7-17) mg/dL Creatinine 0.86 (0.52-1.04) mg/dL Glucose 116 H (74-99) mg/dL Calcium 9.3 (8.4-10.2) mg/dL AST 19 (14-36) U/L ALT 16 (4-34) U/L Alkaline Phosphatase 94 (38-126) U/L Total Protein 7.2 (6.3-8.2) g/dL Albumin 4.0 (3.5-5.0) g/dL Current Medications Generic Name Dose Route Start Last Admin Trade Name Freq PRN Reason Stop Dose Admin Aspirin 325 mg 07/12/19 09:00 Aspirin PO DAILY [facility] Heparin Sodium/Sodium Chloride 250 mls @ 10 mls/hr 07/11/19 18:15 07/12/19 02:46 25,000 unit/ Sodium Chloride IV 11.186 units/kg/hr .Q24H [facility] 12.177 mls/hr Titration Protocol 9.186 UNITS/KG/HR Nitroglycerin 0.4 mg 07/11/19 19:15 Nitrostat SUBLINGUAL Q5M PRN Chest Pain Nitroglycerin 1 inch 07/12/19 00:00 07/12/19 07:11 Nitro-Bid Oint TOPICAL Not Given Q6HR [facility] Intake and Output 07/11/19 07/12/19 07/12/19 22:59 06:59 14:59 Intake Total 75.667 Balance 75.667 Intake: Intake, IV Titration 75.667 Amount Heparin Sod,Pork in 0.45% 75.667 NaCl 25,000 unit In 0.45 % NaCl 1 250ml.bag @ 9. 186 UNITS/KG/HR 10 mls/hr IV .Q24H [facility] Rx#: [id number] Other: Weight 108.862 kg 07/11/19 17:25 07/11/19 17:25
[2019-07-12] MEDS ORDERED: LIDOCAINE 1% INJ 10MG/ML (20 ML MDV) ONE (11:58)
[2019-07-12] MEDS ORDERED: diphenhydrAMINE 50 MG/ML 1 ML VIAL ONE (11:59)
[2019-07-12] MEDS ORDERED: methylPREDNISolone SOD SUCCI 125 MG/2 ML VIAL IVP ONE (12:00)
[2019-07-12] MEDS ORDERED: SODIUM CHLORIDE 0.9% 1,000 ML IV ONE (12:00)
[2019-07-12] MEDS ORDERED: MIDAZOLAM 2 MG/2 ML VIAL IVP ONE (12:01)
[2019-07-12] MEDS ORDERED: methylPREDNISolone SOD SUCCI 125 MG/2 ML VIAL ONE (12:01)
[2019-07-12] MEDS ORDERED: diphenhydrAMINE 50 MG/ML 1 ML VIAL IVP ONE (12:03)
--- NOTE | 2019-07-12 12:03 | P.HPIM ---
History of Present Illness H&P Date: 07/12/19 Chief Complaint: Chest pain This is a 54-year-old female with history of asthma, angina, family history of CAD, gastroesophageal reflux disease, chronic back pain, ADD/ADHD, anxiety, depression, bipolar, history of polysubstance abuse-cocaine, methamphetamines, alcohol and multiple other medical issues, presented to the ER with complaints of sudden sharp chest pain radiating up her left side of neck ,shoulder and left arm accompanied by minimal shortness of breath 2 hours while at rest. Denies current polysubstance abuse. Reports pain is ongoing. Denies lightheadedness dizziness or focal deficits. Denies abdominal pain, nausea vomiting or diarrhea. Denies diaphoresis. Denies fever, chills, cough. EKG reporting normal sinus rhythm, T-wave abnormalities. Troponin negative 3. Chest x-ray reporting nonacute. CBC, CMP remarkable. It is right 77, cholesterol 167, LDL 100, HDL 52. Vital signs stable. Negative stress test in 2018. Received nitroglycerin sublingual in the ER, chest pain temporarily relieved, returned and initiated on heparin drip. Cardiology consulted. Review of Systems ROS Statement: Those systems with pertinent positive or pertinent negative responses have been documented in the HPI. ROS Other: All systems not noted in ROS Statement are negative. Past Medical History Past Medical History: Asthma, Chest Pain / Angina, GERD/Reflux Additional Past Medical History / Comment(s): Chronic cervical and back pain, bilateral carpal tunnel syndrome, bronchitis. History of Any Multi-Drug Resistant Organisms: MRSA Date of last positivie culture/infection: 2006 MDRO Source:: right leg Past Surgical History: Cholecystectomy, Heart Catheterization, Tubal Ligation Additional Past Surgical History / Comment(s): 2009 Cardiac cath-normal, L thigh injury with surgical repair, EGD, colonoscopy. Past Anesthesia/Blood Transfusion Reactions: No Reported Reaction Smoking Status: Never smoker - Past Family History Mother Family Medical History: Diabetes Mellitus Brother(s) Family Medical History: Diabetes Mellitus, Myocardial Infarction (ND) Additional Family Medical History / Comment(s): Brother had several MIs, pt is u nable to recall age of first ND. He has a pacemaker. Sister(s) Family Medical History: Diabetes Mellitus Father Family Medical History: Diabetes Mellitus Medications and Allergies Home Medications Medication Instructions Recorded Confirmed Type Ascorbic Acid [Vitamin C] 1,000 mg PO DAILY 07/11/19 07/11/19 History Cyanocobalamin (Vitamin B-12) 1,000 mcg PO DAILY 07/11/19 07/11/19 History [Vitamin B-12] Escitalopram [Lexapro] 10 mg PO DAILY 07/11/19 07/11/19 History Allergies Allergy/AdvReac Type Severity Reaction Status Date / Time Iodinated Contrast Media Allergy Rash/Hives Verified 07/11/19 18:32 [Iodinated Contrast Media - IV Dye] Physical Exam Vitals: Vital Signs Temp Pulse Resp BP Pulse Ox 07/12/19 06:07 59 L 16 146/93 95 07/12/19 02:00 65 14 136/94 95 07/12/19 00:00 64 16 116/69 95 07/11/19 22:00 60 63 H 132/83 94 L 07/11/19 20:00 66 18 139/93 95 07/11/19 17:40 75 18 154/97 96 07/11/19 17:07 98.2 F 64 20 161/95 96 Intake and Output 07/11/19 07/12/19 07/12/19 22:59 06:59 14:59 Intake Total 75.667 Balance 75.667 Intake: Intake, IV Titration 75.667 Amount Heparin Sod,Pork in 0.45% 75.667 NaCl 25,000 unit In 0.45 % NaCl 1 250ml.bag @ 9. 186 UNITS/KG/HR 10 mls/hr IV .Q24H [facility] Rx#: [id number] Other: Weight 108.862 kg 108.862 kg PHYSICAL EXAM: VITAL SIGNS: As above GENERAL: Sitting up in bed, no acute distress HEENT: Conjunctivae normal. eyes normal. NECK: No JVD. No thyroid enlargement. No LNs CARDIOVASCULAR: S1, S2 regular.No murmur RESPIRATION: Unlabored, Breath sounds diminished in the bases. No rhonchi or crackles. No bronchial breathing. ABDOMEN: Soft, nontender . No guarding. no masses palpable. No ascites, No hepatosplenomegaly.Bowel sounds heard. LEGS: No edema. no swelling. PSYCHIATRY: Alert and oriented X3, mood and affect normal. NERVOUS SYSTEM: Cranial N 2-12 grossly normal. Moves all 4 limbs. No focal deficits. Strength and sensation grossly intact. Skin: no lesions, no rash Joints: No active swelling. No inflammation. Lymphatic system. No LN neck axilla or groin. Results CBC & Chem 7: 07/11/19 17:25 07/11/19 17:25 Labs: Abnormal Lab Results - Last 24 Hours (Table) 07/11/19 07/12/19 07/12/19 Range/Units 17:25 01:17 05:32 APTT 44.8 H (22.0-30.0) sec Glucose 116 H (74-99) mg/dL LDL Cholesterol, Calc 100 H (0-99) mg/dL 07/12/19 Range/Units 05:32 APTT 73.9 H (22.0-30.0) sec Glucose (74-99) mg/dL LDL Cholesterol, Calc (0-99) mg/dL Thrombosis Risk Factor Assmnt - Choose All That Apply Any of the Below Risk Factors Present?: Yes Each Factor Represents 1 point: Age 41-60 years, Obesity (BMI >25) Other Risk Factors: No Other congenital or acquired thrombophilia - If yes, enter type in comment: No Thrombosis Risk Factor Assessment Total Risk Factor Score: 2 Thrombosis Risk Factor Assessment Level: Low Risk Assessment and Plan Assessment: Acute atypical chest pain, possible unstable angina ,rule out acute acute coronary syndrome in a patient with history of angina, family history of CAD Hyperlipidemia Hypertension History of polysubstance abuse including cocaine, methamphetamines, alcohol Bipolar Plan: Continue on current medication regime ,monitoring and symptomatic tr eatment. Maintain on heparin drip, evaluated by cardiology, chronic catheterization recommended. Patient reports ALLERGY to dye, RADIO ELECTRONICS TECHNICIAN notifying cardiology. Further recommendations to follow. The impression and plan of care has been dictated as directed. : I performed a history and examination of this patient, discussed the same with the dictator. I agree with the dictator's note ,documented as a scribe. Any additional findings or plans will be noted.
[2019-07-12] MEDS ORDERED: LIDOCAINE 1% INJ 10MG/ML (20 ML MDV) SQ ONE (12:04)
[2019-07-12] MEDS ORDERED: fentaNYL (PF) 50 MCG/ML 2 ML AMP IVP ONE (12:05)
[2019-07-12] MEDS ORDERED: fentaNYL (PF) 50 MCG/ML 2 ML AMP ONE (12:06)
[2019-07-12] MEDS ORDERED: RX INFO: IV CONTRAST WAS GIVEN 1 EACH MISC MISCELLANE PRN (12:24)
[2019-07-12] MEDS ORDERED: IOPAMIDOL-370 125ML BTL INJ ONE (12:25)
--- NOTE | 2019-07-12 12:49 | CC ---
CARDIAC CATHETERIZATION REPORT INDICATION: Unstable angina. PROCEDURE NOTE: After obtaining informed consent, left heart catheterization, coronary angiogram are performed via the right femoral artery using standard Vish catheters. Patient tolerated the procedure well without any obvious immediate complications. A femoral angiogram was performed and Angio-Seal was deployed for hemostasis Patient received moderate conscious sedation and total sedation time was 22 minutes. FINDINGS: 1. HEMODYNAMICS: Left ventricular end-diastolic pressure is 28 mm. There is no significant gradient across the aortic valve. 2. LEFT VENTRICULOGRAM: Left ventriculogram is not performed. 3. ANGIOGRAPHIC DATA: Left Main Coronary Artery: Left main coronary artery is normal-sized vessel and is free of stenosis. Divides into left anterior descending coronary artery and circumflex coronary artery. LAD and its branches, circumflex coronary artery and its branches are free of significant stenosis. Circumflex coronary artery is a codominant vessel. Right coronary artery is a large codominant system and is free of significant stenosis. CONCLUSIONS: 1. No significant obstructive coronary artery disease. 2. Elevated left ventricular end-diastolic pressures. PLAN: The patient will be admitted to the OBS unit. Other causes for her chest pain will be investigated including a D-dimer to rule out pulmonary embolism and the patient will have an echo done to evaluate the pericardium aortic root. MMODL / IJN: [id number] /
--- NOTE | 2019-07-12 12:50 | ECHOF ---
Referral Reason:cp, ekg changes MEASUREMENTS -------- HEIGHT: 167.6 cm WEIGHT: 108.9 kg BP: 146/93 RVIDd: 3.6 cm (< 3.3) IVSd: 1.5 cm (0.6 - 1.1) LVIDd: 4.5 cm (3.9 - 5.3) LVPWd: 1.6 cm (0.6 - 1.1) IVSs: 1.8 cm LVIDs: 3.3 cm LVPWs: 2.3 cm LAESV Index (A-L): 38.49 ml/m IVSd: 1.6 cm (0.6 - 1.1) LVIDd: 5.4 cm (3.9 - 5.3) LVPWd: 1.7 cm (0.6 - 1.1) IVSs: 1.9 cm LVIDs: 3.5 cm LVPWs: 2.5 cm EDV(Teich): 144 ml ESV(Teich): 50 ml EF(Teich): 65 % %FS: 36 % SV(Teich): 94 ml Ao Diam: 3.1 cm (2.0 - 3.7) AV Cusp: 2.5 cm (1.5 - 2.6) LA Diam: 4.5 cm (2.7 - 3.8) MV EXCURSION: 17.009 mm (> 18.000) MV EF SLOPE: 94 mm/s (70 - 150) EPSS: 0.8 cm MV E Sreafin: 0.50 m/s MV DecT: 211 ms MV A Serafin: 0.70 m/s MV E/A Ratio: 0.71 RAP: 5.00 mmHg RVSP: 33.28 mmHg FINDINGS -------- Sinus rhythm with extra systolic beats. This was a technically adequate study. The left ventricular size is normal. There is moderate concentric left ventricular hypertrophy. O verall left ventricular systolic function is mildly impaired with, an EF between 45 - 50 %. Increas ed Lap Grade II Diastolic Dysfunction. The right ventricle is mildly enlarged. LA is moderately dilated 34-39 ml/m2 The right atrium is mildly enlarged. Interatrial and interventricular septum intact. The aortic valve is trileaflet and appears structurally normal. There is no evidence of aortic regu rgitation. There is no evidence of aortic stenosis. Mild mitral annular calcification present. Owtp-vy-uiyffsrz mitral regurgitation is present. Mild tricuspid regurgitation present. There is borderline pulmonary artery hypertension. The righ t ventricular systolic pressure, as measured by Doppler, is 33.28mmHg. There is no pulmonic regurgitation present. The aortic root size is normal. IVC Not well visulized. There is no pericardial effusion. CONCLUSIONS -------- 1. Sinus rhythm with extra systolic beats. 2. This was a technically adequate study. 3. The left ventricular size is normal. 4. There is moderate concentric left ventricular hypertrophy. 5. Overall left ventricular systolic function is mildly impaired with, an EF between 45 - 50 %. 6. Increased Lap Grade II Diastolic Dysfunction. 7. The right ventricle is mildly enlarged. 8. LA is moderately dilated 34-39 ml/m2 9. The right atrium is mildly enlarged. 10. Interatrial and interventricular septum intact. 11. The aortic valve is trileaflet and appears structurally normal. 12. There is no evidence of aortic regurgitation. 13. There is no evidence of aortic stenosis. 14. Mild mitral annular calcification present. 15. Suwc-bv-klqtjtjf mitral regurgitation is present. 16. Mild tricuspid regurgitation present. 17. There is borderline pulmonary artery hypertension. 18. The right ventricular systolic pressure, as measured by Doppler, is 33.28mmHg. 19. There is no pulmonic regurgitation present. 20. The aortic root size is normal. 21. IVC Not well visulized. 22. There is no pericardial effusion. CINDER CRUSHER OPERATOR: Maame Madden RDCS
[2019-07-12 16:27] VITALS: RESP 18
[2019-07-12] MEDS: LISINOPRIL 5 MG TAB PO SCH (17:00)
[2019-07-12] MEDS: SODIUM CHLORIDE 0.9% 1,000 ML IV SCH (17:01)
[2019-07-12] MEDS ORDERED: ESCITALOPRAM 10 MG TAB PO SCH (20:30)
[2019-07-12] MEDS: ESCITALOPRAM 10 MG TAB PO SCH (20:56)
[2019-07-13] MEDS: SODIUM CHLORIDE 0.9% 1,000 ML IV SCH (06:55)
[2019-07-13 07:56] VITALS: BP 146/87; PULSE 61; TEMP 98
[2019-07-13] MEDS: ESCITALOPRAM 10 MG TAB PO SCH (08:11)
[2019-07-13] MEDS: LISINOPRIL 5 MG TAB PO SCH (08:11)
[2019-07-13] MEDS ORDERED: METOPROLOL SUCCINATE (ER) 25 MG TAB.ER.24H PO SCH (10:00)
--- NOTE | 2019-07-13 10:04 | P.PN ---
Subjective HISTORY OF PRESENTING ILLNESS This is a pleasant 54-year-old female past medical history significant for asthma and gastroesophageal reflux disease. She follows in the office with Dr. Segura. She underwent cardiac catheterization via the right femoral artery yesterday with Dr. Segura revealing normal coronary arteries with elevated LVEDP of 28. Echocardiogram reveals mildly impaired LV systolic function with EF 45- 50%, grade II diastolic dysfunction, moderately dilated LA, mild-moderate MR, mild TR and mild pulmonary hypertension with RVSP of 33 mmHg. Blood pressure 146/87 heart rate 61 afebrile and maintaining oxygen saturation on room air. She is seen and examined up walking around the room in no acute distress. She denies any further symptoms of chest pain. No shortness of breath, dizziness or palpitations. PHYSICAL EXAMINATION CONSTITUTIONAL: No apparent distress. HEENT: Head is normocephalic. Pupils are equal, round. Sclerae anicteric. Mucous membranes of the mouth are moist. No JVD. No carotid bruit. CHEST EXAMINATION: Lungs are clear to auscultation. No chest wall tenderness is noted on palpation or with deep breathing. HEART EXAMINATION: Regular rate and rhythm. S1, S2 heard. No murmurs, gallops or rub. EXTREMITIES: 2+ peripheral pulses, no lower extremity edema and no calf tenderness. Right groin soft, non-tender, no hematoma or bleeding. ASSESSMENT Unstable angina with EKG changes, normal cathetreization Hypertension History of illicit drug use in the past Strong family history of premature coronary artery disease PLAN Initiate toprol 25 mg daily and continue lisinopril for blood pressure control. Symptoms could be secondary to hypertensive heart disease given her elevated LVEDP and mildly impaired LV function. May benefit from Entresto if no improvement on current regimen. Follow up in the office with Dr. Segura in 1 week. Nurse Practitioner note has been reviewed, I agree with a documented findings and plan of care. Patient was seen and examined. Objective - Vital Signs Vital signs: Vital Signs Temp 98.0 F 07/13/19 07:00 Pulse 61 07/13/19 07:00 Resp 18 07/13/19 07:00 BP 146/87 07/13/19 07:00 Pulse Ox 95 07/13/19 07:00 Intake & Output 07/12/19 07/13/19 07/13/19 18:59 06:59 18:59 Intake Total 1230 240 Output Total 350 Balance 880 240 Weight 108.862 kg Intake: IV 150 Oral 480 240 Other 600 Output: Urine 350 Other: # Voids 1 - Labs CBC & Chem 7: 07/11/19 17:25 07/11/19 17:25
[2019-07-13 10:11] LABS: Basophils % (A) 1 %; Eosinophils % (A) 0 %; HCT 40.6 % (34.0-46.0); Lymphocytes % (A) 9 %; MCH 28.3 pg (25.0-35.0); MCV 88.5 fL (80.0-100.0); Mean Platelet Volume 7.1; Monocytes % (A) 5 %; Neutrophils % (A) 84 %; Platelet Count 297 k/uL (150-450); RBC 4.59 m/uL (3.80-5.40); WBC 13.9 k/uL (3.8-10.6)
[2019-07-13 10:12] LABS: Basophils # (A) 0.1 k/uL (0-0.2); Lymphocytes # (A) 1.3 k/uL (1.0-4.8); Monocytes # (A) 0.7 k/uL (0-1.0); Neutrophils # (A) 11.7 k/uL (1.3-7.7)
[2019-07-13 10:28] LABS: African American GFR (CKD) >90 (>60 ml/min/1.73 sqM); Anion Gap 7 mmol/L; Blood Urea Nitrogen 18 mg/dL (7-17); Calcium 9.4 mg/dL (8.4-10.2); Carbon Dioxide 29 mmol/L (22-30); Chloride 105 mmol/L (98-107); Glucose 106 mg/dL (74-99); Non-African American GFR(CKD) 87 (>60 ml/min/1.73 sqM); Potassium 3.9 mmol/L (3.5-5.1); Sodium 141 mmol/L (137-145)
--- NOTE | 2019-07-14 16:26 | P.DS ---
Providers Date of admission: 07/11/19 19:15 Expected date of discharge: 07/14/19 Attending physician: Amilcar Lainez Consults: 07/11/19 19:15 Consult Physician Urgent Consulting Provider: [facility] Consult Reason/Comments: Unstable angina Do you want consulting provider notified?: Yes Primary care physician: [facility] Course: Final Diagnoses: Acute atypical chest pain, unstable angina with EKG changes, normal catheterization, in a patient with history of angina, family history of CAD. Possible muscloskeletal component. Hyperlipidemia Hypertension History of polysubstance abuse including cocaine, methamphetamines, alcohol Bipolar Hospital course: This is a 54-year-old female with history of asthma, angina, family history of CAD, gastroesophageal reflux disease, chronic back pain, ADD/ADHD, anxiety, depression, bipolar, history of polysubstance abuse-cocaine, methamphetamines, alcohol and multiple other medical issues, presented to the ER with complaints of sudden sharp chest pain radiating up her left side of neck ,shoulder and left arm accompanied by minimal shortness of breath 2 hours while at rest. Denies current polysubstance abuse. Reports pain is ongoing. Denies lightheadedness dizziness or focal deficits. Denies abdominal pain, nausea vomiting or diarrhea. Denies diaphoresis. Denies fever, chills, cough. EKG reporting normal sinus rhythm, T-wave abnormalities. Troponin negative 3. Chest x-ray reporting nonacute. CBC, CMP remarkable. It is right 77, cholesterol 167, LDL 100, HDL 52. Vital signs stable. Negative stress test in 2018. Received nitroglycerin sublingual in the ER, chest pain temporarily relieved, returned and initiated on heparin drip. Cardiology consulted. Evaluated by cardiology, underwent cardiac catheterization, reporting normal. Significant clinical improvement. Cleared by cardiology for discharge. Patient will be discharged home today in a stable condition with guarded prognosis. The impression and plan of care has been dictated as directed. : I performed a history and examination of this patient, discussed the same with the dictator. I agree with the dictator's note ,documented as a scribe. Any additional findings or plans will be noted. Patient Condition at Discharge: Stable Plan - Discharge Summary Discharge Rx Participant: No New Discharge Prescriptions: New Metoprolol Succinate (ER) [Toprol XL] 25 mg PO DAILY #30 tab.er.24h Lisinopril [Zestril] 5 mg PO DAILY #30 tab Continue Escitalopram [Lexapro] 10 mg PO DAILY Cyanocobalamin (Vitamin B-12) [Vitamin B-12] 1,000 mcg PO DAILY Ascorbic Acid [Vitamin C] 1,000 mg PO DAILY Discharge Medication List Ascorbic Acid [Vitamin C] 1,000 mg PO DAILY 07/11/19 [History] Cyanocobalamin (Vitamin B-12) [Vitamin B-12] 1,000 mcg PO DAILY 07/11/19 [History] Escitalopram [Lexapro] 10 mg PO DAILY 07/11/19 [History] Lisinopril [Zestril] 5 mg PO DAILY #30 tab 07/13/19 [Rx] Metoprolol Succinate (ER) [Toprol XL] 25 mg PO DAILY #30 tab.er.24h 07/13/19 [Rx] Follow up Appointment(s)/Referral(s): Amilcar Lainez MD [STAFF PHYSICIAN] - 07/27/19 2:15 pm () Mendel Segura MD [STAFF PHYSICIAN] - 07/20/19 2:30 pm (Follow up in the office with Dr. Segura for a site check as scheduled for you) Patient Instructions/Handouts: *Surgery [facility] - After Heart Catheterization - Wood Patternmaker Apprentice Instructions Activity/Diet/Wound Care/Special Instructions: Outpatient scheduling will call you to setup appointment date/time for a chest and thoracic Cat Scan (please take prescription with you to your appointment) Discharge Disposition: HOME SELF-CARE
== END 2019-07-13 11:41 | disposition home or self-care (01) ==
LOC: EC 17:03 → 1SOBS 19:15
PROVIDERS: ADMIT Family Medicine; ATTEND Family Medicine
DX: I20.0 Unstable angina (principal); E78.5 Hyperlipidemia, unspecified; I10 Essential (primary) hypertension; F14.11 Cocaine abuse, in remission; F15.11 Other stimulant abuse, in remission; F10.11 Alcohol abuse, in remission; I08.1 Rheumatic disorders of both mitral and tricuspid valves; I27.20 Pulmonary hypertension, unspecified; F31.9 Bipolar disorder, unspecified; F90.9 Attention-deficit hyperactivity disorder, unspecified type; F41.9 Anxiety disorder, unspecified; J45.909 Unspecified asthma, uncomplicated; K21.9 Gastro-esophageal reflux disease without esophagitis; G89.29 Other chronic pain; M54.9 Dorsalgia, unspecified; M54.2 Cervicalgia; G56.03 Carpal tunnel syndrome, bilateral upper limbs; E66.9 Obesity, unspecified; Z68.38 Body mass index [BMI] 38.0-38.9, adult; Z23 Encounter for immunization; Z79.899 Other long term (current) drug therapy; Z91.041 Radiographic dye allergy status; Z86.14 Personal history of Methicillin resistant Staphylococcus aureus infection; Z90.49 Acquired absence of other specified parts of digestive tract; Z98.890 Other specified postprocedural states; Z87.09 Personal history of other diseases of the respiratory system; Z87.828 Personal history of other (healed) physical injury and trauma; Z82.49 Family history of ischemic heart disease and other diseases of the circulatory system; Z83.3 Family history of diabetes mellitus
CPT/HCPCS: 93005 ×2; 96366 ×2; 96376 ×2; 96365; 99291; 36415; 93306; 93458; 85379; 80061; 80053; 80048; 83735; 84484 ×2; 85025 ×2; 85610; 85730 ×2; 71046; 90686; G0378 ×3; C1760; C1894; C1769; G0008; J2250; J1200; J1644 ×3; J2930; J2001; J3010; Q9967

== ENCOUNTER → 2019-12-26 | Outpatient (CLI) | payer OTHER ==
--- NOTE | 2019-12-26 11:05 | XR ---
EXAMINATION TYPE: XR Hip Complete RT DATE OF EXAM: 12/26/2019 CLINICAL HISTORY: Pain for 2 months. TECHNIQUE: AP and frogleg views of the right hip are obtained. COMPARISON: None. FINDINGS: There is no acute fracture/dislocation evident in the right hip. Fols-ay-dxuvdzbr axial ramón int space loss with mild acetabular spurring. Single right-sided pelvic phlebolith incidentally noted . Femoral head shape is maintained. IMPRESSION: As above .
--- NOTE | 2019-12-26 11:08 | XR ---
EXAMINATION TYPE: XR knee complete RT DATE OF EXAM: 12/26/2019 CLINICAL HISTORY: Pain for 2 months. TECHNIQUE: Three views of the right knee are obtained. COMPARISON: None. FINDINGS: There is no acute fracture/dislocation evident in right knee. Moderate tricompartment join t with mild spurring. There is spur from the anterior superior patella at distal quadriceps tendon at tachment . The overlying soft tissue appears unremarkable. IMPRESSION: As above.
== END | disposition home or self-care (01) ==
LOC: RADXRMAIN 09:51
PROVIDERS: ATTEND Family Medicine
DX: M25.551 Pain in right hip (principal); M25.561 Pain in right knee
CPT/HCPCS: 73502

== ENCOUNTER → 2020-02-15 | Outpatient (CLI) | payer OTHER ==
--- NOTE | 2020-02-15 13:46 | MR ---
EXAMINATION TYPE: MR knee RT wo con DATE OF EXAM: 02/15/2020 COMPARISON: 01/26/2020 HISTORY: Rt knee pain with no trauma TECHNIQUE: Multiplanar, multisequence imaging of the right knee is performed without IV contrast. FINDINGS: There is a large area of marrow edema involving the medial tibial plateau and articular por tion of the femoral condyle. There is a grade III chondromalacia with complex tear involving the post erior horn of the medial meniscus. Lateral meniscus intact. There is increased fluid signal surroundi ng the MCL compatible with strain. No tear is seen. There is fluid around the medial musculature and a multicystic changes could represent a ruptured Nixon's cyst, ganglion cyst or extravasated joint fl uid. Medial collateral and lateral collateral ligaments are intact. Anterior cruciate and posterior crucia te ligaments are intact There is a small amount of fluid in the suprapatellar bursa. There is thinning and grade IV chondroma lacia of the medial patellar facet. Report called to referring clinician's office. IMPRESSION: 1. Large area of marrow edema involving the medial tibial plateau with minimal depression suspected h ighly suspicious for subtle medial tibial plateau fracture. Edema involving the articular femoral med ial condyle also noted also suspicious for a subtle impaction fracture. No osteochondral fragment. 2. Complex tear posterior horn medial meniscus extending into the body. 3. chondromalacia as discussed above 4. Small amount of fluid in the suprapatellar bursa. 5. Fluid along the medial musculature of the knee with multicystic changes could represent a ruptured Nixon's cyst or ganglion cyst. A large para meniscal cyst or extravasated fluid from the joint space or bursa also in the differential diagnosis. A Yellow level critical message alert has been initiated for Tha Lopez DO via the [employer] Critical Results System on 02/15/2020 1:43 PM. This message alert has been sent to Tha patricia DO via the preferences provided by the clinician for the receipt of Radiology Critical Findi ngs. Message ID [id number].
== END | disposition home or self-care (01) ==
LOC: RADMRIMAIN 12:44
PROVIDERS: ATTEND Orthopaedic Surgery
DX: S83.231A Complex tear of medial meniscus, current injury, right knee, initial encounter (principal); M22.41 Chondromalacia patellae, right knee; R93.6 Abnormal findings on diagnostic imaging of limbs

== ENCOUNTER → 2020-02-20 | Outpatient (CLI) | payer OTHER ==
[2020-02-20 10:21] LABS: Basophils # (A) 0.1 k/uL (0-0.2); Basophils % (A) 1 %; Eosinophils # (A) 0.2 k/uL (0-0.7); Eosinophils % (A) 4 %; HCT 41.6 % (34.0-46.0); HGB 13.4 gm/dL (11.4-16.0); Lymphocytes # (A) 1.1 k/uL (1.0-4.8); Lymphocytes % (A) 23 %; MCHC 32.2 g/dL (31.0-37.0); MCV 90.2 fL (80.0-100.0); Mean Platelet Volume 6.6; Monocytes # (A) 0.3 k/uL (0-1.0); Monocytes % (A) 7 %; Neutrophils # (A) 3.1 k/uL (1.3-7.7); Neutrophils % (A) 63 %; Platelet Count 305 k/uL (150-450); RBC 4.61 m/uL (3.80-5.40); RDW 13.6 % (11.5-15.5); WBC 4.9 k/uL (3.8-10.6)
== END | disposition home or self-care (01) ==
LOC: LABPAT 08:55
PROVIDERS: ATTEND Orthopaedic Surgery
DX: Z01.818 Encounter for other preprocedural examination (principal); M23.91 Unspecified internal derangement of right knee
CPT/HCPCS: 36415; 80051; 85025; 93005

== ENCOUNTER → 2020-09-02 | Outpatient (CLI) | payer OTHER ==
--- NOTE | 2020-09-02 09:19 | XR ---
EXAMINATION TYPE: XR knee complete LT DATE OF EXAM: 09/02/2020 COMPARISON: None HISTORY: 55-year-old female M2 5.562, left knee pain TECHNIQUE: 3 views FINDINGS: Small knee joint effusion. Extensor mechanism appears intact. There is mild degenerative spurring at the medial compartment. No acute fracture, subluxation, dislocation. IMPRESSION: Mild degenerative spurring in the medial compartment. Small knee joint effusion. No acute osseous abn ormality seen. If symptoms persist, MRI can be considered.
== END ==
LOC: RADXRMAIN 08:41
PROVIDERS: ATTEND Family Medicine
DX: M76.892 Other specified enthesopathies of left lower limb, excluding foot (principal)

== ENCOUNTER → 2023-10-08 | Outpatient (CLI) | payer OTHER ==
--- NOTE | 2023-10-08 09:15 | US ---
EXAMINATION TYPE: US abdomen complete DATE OF EXAM: 10/08/2023 COMPARISON: NONE CLINICAL INDICATION: Female, 58 years old with history of R10.9 UNSPECIFIED ABDOMINAL PAIN; abd pain x 3 weeks TECHNIQUE: Multiple sonographic images of the abdomen are obtained. FINDINGS: EXAM MEASUREMENTS: Liver Length: 17.7 cm Gallbladder Wall: Surgically absent CBD: 1.1 cm Spleen: 12.1 cm Right Kidney: 10.7x5.0x6.4 cm Left Kidney: 10.2x5.4x5.5 cm SODA DISPENSER NOTES: Pancreas: Tail obscured by overlying bowel gas Liver: increased size echogenicity and attenuation Gallbladder: Surgically absent Evidence for sonographic Read's sign: No CBD: dilated, post-jesus manuel Spleen: echogenic coarse echotexture Right Kidney: No hydronephrosis or masses seen Left Kidney: superior pole cyst: 3.4x3.3x3.4cm Upper IVC: wnl Abd Aorta: wnl exam limited by bowel gas and body habitus The intrahepatic portion of the IVC and proximal abdominal aorta are within normal limits. Common bi le duct is unremarkable. The visualized portions of the pancreas are homogenous. The spleen is unre markable. Kidneys are symmetric and free of hydronephrosis. IMPRESSION: Correlate for hepatic steatosis. Status post cholecystectomy changes.
== END | disposition home or self-care (01) ==
LOC: RADUSWWP 08:04
PROVIDERS: ATTEND Internal Medicine Geriatric Medicine
DX: R10.9 Unspecified abdominal pain (principal); Z90.49 Acquired absence of other specified parts of digestive tract
CPT/HCPCS: 76700

== ENCOUNTER 2023-10-30 02:20 | Emergency (ER) | payer OTHER ==
[2023-10-30] MEDS: HYDROmorphone 1 MG/ML 1 ML SYRINGE IVP STA ×2 (03:51→07:34)
[2023-10-30 04:26] LABS: Basophils # (A) 0.1 k/uL (0-0.2); Basophils % (A) 1 %; Eosinophils # (A) 0.2 k/uL (0-0.7); Eosinophils % (A) 3 %; HCT 31.9 % (34.0-46.0); HGB 10.3 gm/dL (11.4-16.0); Lymphocytes % (A) 12 %; MCHC 32.3 g/dL (31.0-37.0); MCV 86.7 fL (80.0-100.0); Mean Platelet Volume 6.5; Monocytes # (A) 0.5 k/uL (0-1.0); Monocytes % (A) 7 %; Neutrophils # (A) 6.1 k/uL (1.3-7.7); Neutrophils % (A) 77 %; Platelet Count 476 k/uL (150-450); RBC 3.67 m/uL (3.80-5.40); RDW 13.6 % (11.5-15.5)
[2023-10-30 04:42] LABS: ALT 20 U/L (4-34); AST 17 U/L (14-36); African American GFR (CKD) 86 (>60 ml/min/1.73 sqM); Albumin 3.5 g/dL (3.5-5.0); Alkaline Phosphatase 122 U/L (38-126); Anion Gap 5 mmol/L; Blood Urea Nitrogen 26 mg/dL (7-17); C Reactive Protein 5.3 mg/dL (<1.0); Calcium 8.6 mg/dL (8.4-10.2); Carbon Dioxide 31 mmol/L (22-30); Chloride 105 mmol/L (98-107); Glucose 102 mg/dL (74-99); Non-African American GFR(CKD) 75 (>60 ml/min/1.73 sqM); Potassium 3.8 mmol/L (3.5-5.1); Sodium 141 mmol/L (137-145); Total Bilirubin 0.4 mg/dL (0.2-1.3); Total Protein 6.7 g/dL (6.3-8.2)
--- NOTE | 2023-10-30 05:09 | ED ---
Extremity Problem HPI - General Source: patient Mode of arrival: ambulatory Limitations: no limitations <Michelle Kirkpatrick - Last Filed: 10/30/23 05:09> - History of Present Illness MD Complaint: extremity pain, extremity swelling -: hour(s) Location: right, lower extremity History of Same: No Quality: aching Consistency: constant Improves with: nothing Worsens with: walking, exertion Associated Symptoms: denies other symptoms <Tyler Klein - Last Filed: 10/30/23 07:12> <Familia Brar - Last Filed: 10/30/23 08:15> - General Chief complaint: Extremity Problem,Nontraumatic Stated complaint: RT leg pain Time Seen by Provider: 10/30/23 02:49 - History of Present Illness Initial comments: Patient is a 58-year-old woman presenting to have evaluation for right leg pain and swelling. Patient is now postoperative day 11 following right total knee re placement. This was performed at outside hospital. The patient had gone for physical therapy yesterday and then she states that her leg started to markedly increase in size and there was pain. Patient had not been having fever or chills. She had not been having significant pain or swelling prior to physical therapy. (Tyler Klein) - Related Data Home Medications Medication Instructions Recorded Confirmed Escitalopram [Lexapro] 20 mg PO DAILY 07/11/19 02/29/20 Acetaminophen [Tylenol Arthritis] 650 mg PO Q6H PRN 02/22/20 02/29/20 Previous Rx's Medication Instructions Recorded HYDROcodone/APAP 5-325MG [[place] 1 tab PO Q6HR PRN 7 Days #28 tab 02/29/20 5-325] Allergies Allergy/AdvReac Type Severity Reaction Status Date / Time Iodinated Contrast Media Allergy Rash/Hives Verified 10/30/23 02:46 [Iodinated Contrast Media - IV Dye] Review of Systems ROS Other: All systems not noted in ROS Statement are negative. <Michelle Kirkpatrick - Last Filed: 10/30/23 05:09> ROS Other: All systems not noted in ROS Statement are negative. Constitutional: Denies: fever, chills Respiratory: Denies: cough, dyspnea, hemoptysis Cardiovascular: Reports: edema. Denies: chest pain, palpitations Gastrointestinal: Denies: abdominal pain, vomiting, diarrhea Genitourinary: Denies: dysuria, hematuria Musculoskeletal: Denies: back pain Skin: Denies: rash Neurological: Denies: weakness, numbness Hematological/Lymphatic: Denies: easy bleeding <Tyler Klein - Last Filed: 10/30/23 07:12> ROS Other: All systems not noted in ROS Statement are negative. <Familia Brar - Last Filed: 10/30/23 08:15> ROS Statement: Those systems with pertinent positive or pertinent negative responses have been documented in the HPI. Past Medical History Past Medical History: Asthma, Chest Pain / Angina, Musculoskeletal Disorder, Osteoarthritis (OA) Additional Past Medical History / Comment(s): Chronic cervical and back pain, bilateral carpal tunnel syndrome, has had chest pain in past but no cardiac problems found, thinks due to anxiety History of Any Multi-Drug Resistant Organisms: MRSA Date of last positivie culture/infection: 2006 MDRO Source:: right leg Past Surgical History: Cholecystectomy, Heart Catheterization, Tubal Ligation Additional Past Surgical History / Comment(s): L thigh injury with surgical repair, EGD, colonoscopy. Past Anesthesia/Blood Transfusion Reactions: No Reported Reaction Past Psychological History: ADD/ADHD, Anxiety, Bipolar, Depression Smoking Status: Never smoker - Past Family History Mother Family Medical History: Diabetes Mellitus Brother(s) Family Medical History: Diabetes Mellitus, Myocardial Infarction (PR) Additional Family Medical History / Comment(s): Brother had several MIs, pt is unable to recall age of first PR. He has a pacemaker. Sister(s) Family Medical History: Diabetes Mellitus Father Family Medical History: Diabetes Mellitus <Michelle Kirkpatrick - Last Filed: 10/30/23 05:09> General Exam Limitations: no limitations <Michelle Kirkpatrick - Last Filed: 10/30/23 05:09> Limitations: no limitations General appearance: alert, in no apparent distress Head exam: Present: atraumatic, normocephalic Eye exam: Present: normal appearance. Absent: scleral icterus, conjunctival injection Neck exam: Present: normal inspection Respiratory exam: Present: normal lung sounds bilaterally. Absent: respiratory distress, wheezes, rales, rhonchi, stridor Cardiovascular Exam: Present: regular rate, normal rhythm, normal heart sounds. Absent: systolic murmur, diastolic murmur, rubs, gallop GI/Abdominal exam: Present: soft. Absent: distended, tenderness, guarding, rebound, rigid, mass Extremities exam: Present: tenderness, normal capillary refill, pedal edema, other (The patient has postoperative incision that is clean dry and intact. The right lower extremity does have some mild warmth and erythema. There is moderate swelling and tenderness. No definite cord palpable.). Absent: normal inspection Back exam: Present: normal inspection. Absent: vertebral tenderness Neurological exam: Present: alert. Absent: motor sensory deficit Skin exam: Present: warm, dry, intact, normal color, erythema. Absent: rash <Tyler Klein - Last Filed: 10/30/23 07:12> Course Vital Signs 10/30/23 10/30/23 02:42 07:34 Temperature 97.9 F 98.9 F Pulse Rate 95 70 Respiratory 20 18 Rate Blood Pressure 143/80 135/71 O2 Sat by Pulse 98 99 Oximetry Medical Decision Making - Lab Data Result diagrams: 10/30/23 04:01 10/30/23 04:01 <Michelle Kirkpatrick - Last Filed: 10/30/23 05:09> - Lab Data Result diagrams: 10/30/23 04:01 10/30/23 04:01 <Tyler Klein - Last Filed: 10/30/23 07:12> - Lab Data Result diagrams: 10/30/23 04:01 10/30/23 04:01 <Familia Brar - Last Filed: 10/30/23 08:15> - Medical Decision Making Was pt. sent in by a medical professional or institution (, PA, DOUGH CUTTER, urgent care, hospital, or [place] [facility] facility...) When possible be specific @ -No Did you speak to anyone other than the patient for history (EMS, parent, family, police, friend...)? What history was obtained from this source @ -No Did you review nursing and triage notes (agree or disagree)? Why? @ -I reviewed and agree with nursing and triage notes Were old charts reviewed (outside hosp., previous admission, EMS record, old EKG, old radiological studies, urgent care reports/EKG's, [place] [facility] facility records)? Report findings @ -No old charts were reviewed Differential Diagnosis (chest pain, altered mental status, abdominal pain women, abdominal pain men, vaginal bleeding, weakness, fever, dyspnea, syncope, headache, dizziness, GI bleed, back pain, seizure, CVA, palpatations, mental health, musculoskeletal)? @ -Differential Musculoskeletal Muscular strain, contusion, ligament sprain, fracture, arthritis, septic arthritis, bursitis, cellulitis, muscle spasm, nerve compression, DVT, arterial occlusion, herpes zoster, electrolyte abnormality, tumor.... This is not meant to be in all inclusive list EKG interpreted by me (3pts min.). @ -As above X-rays interpreted by me (1pt min.). @ -None done CT interpreted by me (1pt min.). @ -None done U/S interpreted by me (1pt. min.). @ -Ultrasound without obvious DVT What testing was considered but not performed or refused? (CT, X-rays, U/S, labs)? Why? @ -None What meds were considered but not given or refused? Why? @ -None Did you discuss the management of the patient with other professionals (professionals i.e. , PA, DOUGH CUTTER, lab, RT, psych nurse, social science professor, paper tube cutter, teacher, preventive medicine officer, block and case maker)? Give summary @ -No Was smoking cessation discussed for >3mins.? @ -No Was critical care preformed (if so, how long)? @ -No Were there social determinants of health that impacted care today? How? (Homelessness, low income, unemployed, alcoholism, drug addiction, transportation, low edu. Level, literacy, decrease access to med. care, assisted, rehab)? @ -No Was there de-escalation of care discussed even if they declined (Discuss DNR or withdrawal of care, Hospice)? DNR status @ -No What co-morbidities impacted this encounter? (DM, HTN, Smoking, COPD, CAD, Cancer, CVA, ARF, Chemo, Hep., AIDS, mental health diagnosis, sleep apnea, morbid obesity)? @ -Surgery a week ago Was patient admitted / discharged? Hospital course, mention meds given and route, prescriptions, significant lab abnormalities, going to OR and other pertinent info. @ -Patient reevaluated by myself. Patient resting comfortably in bed. Patient states symptoms started yesterday after physical therapy. Patient states she is doing much better at this time. Knee without any erythema or warmth. Patient does agree with this. No elevation of white blood cell count or fever. Patient will be discharged and recommended close follow-up with her orthopedic doctor. Undiagnosed new problem with uncertain prognosis? @ -No Drug Therapy requiring intensive monitoring for toxicity (Heparin, Nitro, Insulin, Cardizem)? @ -No Were any procedures done? @ -No Diagnosis/symptom? @ -Knee pain Acute, or Chronic, or Acute on Chronic? @ -Acute Uncomplicated (without systemic symptoms) or Complicated (systemic symptoms)? @ -Default Side effects of treatment? @ -No Exacerbation, Progression, or Severe Exacerbation? @ -No Poses a threat to life or bodily function? How? (Chest pain, [place], PR, pneumonia, PE, COPD, DKA, ARF, appy, cholecystitis, CVA, Diverticulitis, Homicidal, Suicidal, threat to staff... and all critical care pts) @ -No (Familia Brar) - Lab Data Lab Results 10/30/23 10/30/23 Range/Units 04:01 04:01 WBC 8.0 (3.8-10.6) k/uL RBC 3.67 L (3.80-5.40) m/uL Hgb 10.3 L (11.4-16.0) gm/dL Hct 31.9 L (34.0-46.0) % MCV 86.7 (80.0-100.0) fL MCH 28.0 (25.0-35.0) pg MCHC 32.3 (31.0-37.0) g/dL RDW 13.6 (11.5-15.5) % Plt Count 476 H (150-450) k/uL MPV 6.5 Neutrophils % 77 % Lymphocytes % 12 % Monocytes % 7 % Eosinophils % 3 % Basophils % 1 % Neutrophils # 6.1 (1.3-7.7) k/uL Lymphocytes # 1.0 (1.0-4.8) k/uL Monocytes # 0.5 (0-1.0) k/uL Eosinophils # 0.2 (0-0.7) k/uL Basophils # 0.1 (0-0.2) k/uL Sodium 141 (137-145) mmol/L Potassium 3.8 (3.5-5.1) mmol/L Chloride 105 (98-107) mmol/L Carbon Dioxide 31 H (22-30) mmol/L Anion Gap 5 mmol/L BUN 26 H (7-17) mg/dL Creatinine 0.85 (0.52-1.04) mg/dL Est GFR (CKD-EPI)AfAm 86 (>60 ml/min/1.73 sqM) Est GFR (CKD-EPI)NonAf 75 (>60 ml/min/1.73 sqM) Glucose 102 H (74-99) mg/dL Calcium 8.6 (8.4-10.2) mg/dL Total Bilirubin 0.4 (0.2-1.3) mg/dL AST 17 (14-36) U/L ALT 20 (4-34) U/L Alkaline Phosphatase 122 (38-126) U/L C-Reactive Protein 5.3 H (<1.0) mg/dL Total Protein 6.7 (6.3-8.2) g/dL Albumin 3.5 (3.5-5.0) g/dL Disposition <Michelle Kirkpatrick - Last Filed: 10/30/23 05:09> <Tyler Klein - Last Filed: 10/30/23 07:12> Is patient prescribed a controlled substance at d/c from ED?: No Time of Disposition: 08:14 <Familia Brar - Last Filed: 10/30/23 08:15> Clinical Impression: Knee pain Disposition: HOME SELF-CARE Condition: Stable Instructions (If sedation given, give patient instructions): Knee Pain (ED) Additional Instructions: Please do follow-up with your orthopedic doctor on Wednesday. Return for increased pain, redness, swelling, fever, worsening or changing symptoms or any other concerns. No driving with pain medications Referrals: Miguelito Aguila MD [Primary Care Provider] - 1-2 days
[2023-10-30 07:42] VITALS: RESP 18
--- NOTE | 2023-10-30 08:03 | US ---
EXAMINATION TYPE: US venous doppler duplex LE RT DATE OF EXAM: 10/30/2023 7:54 AM COMPARISON: NONE CLINICAL INDICATION: Female, 58 years old with history of LE swelling; Right knee replacement 10/19/23 . Pain and edema right leg SIDE PERFORMED: right TECHNIQUE: The lower extremity deep venous system is examined utilizing real time linear array sonog judith with graded compression, doppler sonography and color-flow sonography. VESSELS IMAGED: Common Femoral Vein Deep Femoral Vein Greater Saphenous Vein * Femoral Vein Popliteal Vein Small Saphenous Vein * Proximal Calf Veins (* superficial vessels) Right Leg: *limitations due to patient's body habitus and edema. No evidence of DVT as visualized at this time IMPRESSION: No evidence for DVT within the right lower extremity imaged from the groin to the upper calf.
[2023-10-30 09:04] VITALS: BP 126/70; PULSE 72; TEMP 98.1
[2023-10-30 10:36] LABS: Erythrocyte Sedimentation Rate 80 mm/Hr (0-30)
== END 2023-10-30 08:29 | disposition home or self-care (01) ==
LOC: EC 02:20
DX: M25.561 Pain in right knee (principal)
CPT/HCPCS: 99284; 96374; 96376; 36415; 80053; 85652; 85025; 86140; 93971; J1170